=== PATIENT | female | born 1955 | race Caucasian/White ===

== ENCOUNTER 2016-10-12 05:23 | Emergency (ER) | payer OTHER ==
--- NOTE | 2016-10-12 05:25 | ED ---
General Adult HPI - General Stated complaint: CVA Symptoms Time Seen by Provider: 10/12/16 05:25 Source: RN notes reviewed, old records reviewed - History of Present Illness Initial comments: This is a 61-year-old female ER for evaluation. Patient coming in the ER for evaluation of tingling in her extremities. Patient right leg and right arm tingling. Patient states she usually has back pain that has resolved. Patient has recent history of starting hype blood pressure medication, but denies history of heart disease high cholesterol diabetes or smoking. At this point her tingling and numbness has progressed to full weakness. She believes that she still does have sensation in both her leg and arm. Symptoms are progressively worsening. Patient denies any prior history of similar symptoms. Denies any trauma no headache. - Related Data Allergies Allergy/AdvReac Type Severity Reaction Status Date / Time No Known Allergies Allergy Verified 10/12/16 05:54 Review of Systems ROS Statement: Those systems with pertinent positive or pertinent negative responses have been documented in the HPI. ROS Other: All systems not noted in ROS Statement are negative. General Exam - General Exam Comments Initial Comments: NIH 5 R arm and R leg paralysis General appearance: alert, in no apparent distress Head exam: Present: atraumatic, normocephalic, normal inspection Eye exam: Present: normal appearance, PERRL, EOMI. Absent: scleral icterus, conjunctival injection, periorbital swelling ENT exam: Present: normal exam, mucous membranes moist Neck exam: Present: normal inspection. Absent: tenderness, meningismus, lymphadenopathy Respiratory exam: Present: normal lung sounds bilaterally. Absent: respiratory distress, wheezes, rales, rhonchi, stridor Cardiovascular Exam: Present: regular rate, normal rhythm, normal heart sounds. Absent: systolic murmur, diastolic murmur, rubs, gallop, clicks GI/Abdominal exam: Present: soft, normal bowel sounds. Absent: distended, tenderness, guarding, rebound, rigid Extremities exam: Present: normal inspection, full ROM, normal capillary refill. Absent: tenderness, pedal edema, joint swelling, calf tenderness Back exam: Present: normal inspection Neurological exam: Present: alert, oriented X3, CN II-XII intact Psychiatric exam: Present: normal affect, normal mood Skin exam: Present: warm, dry, intact, normal color. Absent: rash Course Vital Signs 10/12/16 10/12/16 05:44 05:50 Temperature 97.9 F Pulse Rate 88 92 Respiratory 16 16 Rate Blood Pressure 160/80 169/72 O2 Sat by Pulse 98 96 Oximetry - Reevaluation(s) Reevaluation #1: 10/12/16 05:47 patient with no improvement in symptoms Reevaluation #2: 10/12/16 05:55 Code stroke was paged, spoke with on-call neuro interventional list, proceed with TPA Reevaluation #3: 10/12/16 05:55 Consult the patient to greater than 15 minutes regarding pros and cons of TPA, risks and benefits, patient understands and is get risk including brain bleed and , we will proceed with TPA, patient is agreeable EKG Findings - EKG Comments: EKG Findings:: EKG shows normal sinus rhythm rate of 80, ID 186, QRS I6, QTC 450 Medical Decision Making - Medical Decision Making 61 female ER for evaluation of CVA, right-sided weakness, symptoms started at 3: 30, progressively worsening, progressing from medicine taling and right upper and lower extremity to severe paralysis of right lower shown and weakness of right upper extremity. - Lab Data Result diagrams: 10/12/16 05:49 10/12/16 05:49 Lab Results 10/12/16 10/12/16 10/12/16 Range/Units 05:43 05:49 05:49 WBC 6.0 (3.8-10.6) k/uL RBC 3.93 (3.80-5.40) m/uL Hgb 12.4 (11.4-16.0) gm/dL Hct 36.4 (34.0-46.0) % MCV 92.6 (80.0-100.0) fL MCH 31.5 (25.0-35.0) pg MCHC 34.1 (31.0-37.0) g/dL RDW 12.4 (11.5-15.5) % Plt Count 195 (150-450) k/uL Neutrophils % 66 % Lymphocytes % 26 % Monocytes % 4 % Eosinophils % 2 % Basophils % 1 % Neutrophils # 4.0 (1.3-7.7) k/uL Lymphocytes # 1.6 (1.0-4.8) k/uL Monocytes # 0.2 (0-1.0) k/uL Eosinophils # 0.1 (0-0.7) k/uL Basophils # 0.0 (0-0.2) k/uL PT (9.0-12.0) sec INR (<1.1) APTT (22.0-30.0) sec Sodium 144 (137-145) mmol/L Potassium 4.0 (3.5-5.1) mmol/L Chloride 108 H (98-107) mmol/L Carbon Dioxide 25 (22-30) mmol/L Anion Gap 11 mmol/L BUN 21 H (7-17) mg/dL Creatinine 0.74 (0.52-1.04) mg/dL Est GFR (MDRD) Af Amer >60 (>60 ml/min/1.73 sqM) Est GFR (MDRD) Non-Af >60 (>60 ml/min/1.73 sqM) Glucose 102 H (74-99) mg/dL POC Glucose (mg/dL) 98 (75-99) mg/dL POC Glu Lpn Cma ID Mellisamika, Misa Calcium 8.8 (8.4-10.2) mg/dL Phosphorus 2.5 (2.5-4.5) mg/dL Magnesium 1.9 (1.6-2.3) mg/dL Total Bilirubin 0.7 (0.2-1.3) mg/dL AST 17 (14-36) U/L ALT 30 (9-52) U/L Alkaline Phosphatase 54 (38-126) U/L Total Protein 6.3 (6.3-8.2) g/dL Albumin 3.7 (3.5-5.0) g/dL 10/12/16 Range/Units 05:49 WBC (3.8-10.6) k/uL RBC (3.80-5.40) m/uL Hgb (11.4-16.0) gm/dL Hct (34.0-46.0) % MCV (80.0-100.0) fL MCH (25.0-35.0) pg MCHC (31.0-37.0) g/dL RDW (11.5-15.5) % Plt Count (150-450) k/uL Neutrophils % % Lymphocytes % % Monocytes % % Eosinophils % % Basophils % % Neutrophils # (1.3-7.7) k/uL Lymphocytes # (1.0-4.8) k/uL Monocytes # (0-1.0) k/uL Eosinophils # (0-0.7) k/uL Basophils # (0-0.2) k/uL PT 10.6 (9.0-12.0) sec INR 1.0 (<1.1) APTT 22.6 (22.0-30.0) sec Sodium (137-145) mmol/L Potassium (3.5-5.1) mmol/L Chloride (98-107) mmol/L Carbon Dioxide (22-30) mmol/L Anion Gap mmol/L BUN (7-17) mg/dL Creatinine (0.52-1.04) mg/dL Est GFR (MDRD) Af Amer (>60 ml/min/1.73 sqM) Est GFR (MDRD) Non-Af (>60 ml/min/1.73 sqM) Glucose (74-99) mg/dL POC Glucose (mg/dL) (75-99) mg/dL POC Glu Lpn Cma ID Calcium (8.4-10.2) mg/dL Phosphorus (2.5-4.5) mg/dL Magnesium (1.6-2.3) mg/dL Total Bilirubin (0.2-1.3) mg/dL AST (14-36) U/L ALT (9-52) U/L Alkaline Phosphatase (38-126) U/L Total Protein (6.3-8.2) g/dL Albumin (3.5-5.0) g/dL - Radiology Data Radiology results: report reviewed (CT brain, CTA negative for acute disease), image reviewed Critical Care Time Critical Care Time: Yes Total Critical Care Time: 65 Disposition Clinical Impression: Cerebrovascular accident Disposition: OTHER INSTITUTION NOT DEFINED Condition: Critical Referrals: Jonny Qureshi DO [Primary Care Provider] - 1-2 days - Out of Hospital Transfer - Req. Specs Out of Hospital Transfer - Requested Specifics: Other Emergency Center ([facility])
[2016-10-12] MEDS ORDERED: SODIUM CHLORIDE 0.9% 1,000 ML IV STA (05:27)
[2016-10-12] MEDS ORDERED: RX INFO: IV CONTRAST WAS GIVEN 1 EACH MISC MISCELLANE PRN (05:27)
[2016-10-12 05:46] LABS: Glucose,Whole Blood 98 mg/dL (75-99)
[2016-10-12 05:49] VITALS: RESP 16; TEMP 97.9
--- NOTE | 2016-10-12 05:53 | CT ---
EXAMINATION TYPE: CT brain wo con DATE OF EXAM: 10/12/2016 5:44 AM COMPARISON: CTA brain 10/12/2016. HISTORY: code stroke right side arm/leg CT DLP: 3025.60 mGycm Automated exposure control for dose reduction was used. FINDINGS: There is no acute intracranial hemorrhage, mass effect, or midline shift identified. The ventricles and sulci are within normal limits in size. The globes are intact. Mild mucosal thickening is sugges gregory in the maxillary and ethmoid sinuses with chronic sinusitis changes. Small mucous retention cyst is suggested in the left maxillary sinus. Multiple small bone spurs are noted at the tip of the odontoid process of the C2 vertebra in the axia l image 5 with the degenerative changes.. IMPRESSION: No acute intracranial hemorrhage, mass effect, or midline shift is seen.
[2016-10-12] MEDS ORDERED: tPA (Alteplase) PER PHARMACY 1 EACH MISC MISCELLANE PRN (05:54)
[2016-10-12] MEDS ORDERED: ALTEPLASE BOLUS 9 MG in EMPTY BAG 1 BAG IV STA (05:58)
[2016-10-12] MEDS ORDERED: ALTEPLASE 81 MG in EMPTY BAG 1 BAG IV STA (05:58)
[2016-10-12 05:59] LABS: Basophils % (A) 1 %; CH 31.3; CHCM 33.9; Eosinophils # (A) 0.1 k/uL (0-0.7); Eosinophils % (A) 2 %; HCT 36.4 % (34.0-46.0); HGB 12.4 gm/dL (11.4-16.0); Luc % (Auto) 2; Lymphocytes # (A) 1.6 k/uL (1.0-4.8); Lymphocytes % (A) 26 %; MCH 31.5 pg (25.0-35.0); MCHC 34.1 g/dL (31.0-37.0); MCV 92.6 fL (80.0-100.0); Monocytes # (A) 0.2 k/uL (0-1.0); Monocytes % (A) 4 %; Neutrophils % (A) 66 %; RBC 3.93 m/uL (3.80-5.40); RDW 12.4 % (11.5-15.5); WBC (Perox) 6.04
--- NOTE | 2016-10-12 06:08 | CT ---
EXAMINATION TYPE: CT angio head neck DATE OF EXAM: 10/12/2016 5:46 AM COMPARISON: NONE HISTORY: r/o stroke CT DLP: 3025.60 mGycm Automated exposure control for dose reduction was used. TECHNIQUE: Performed with IV Contrast, patient injected with 100 mL of Omnipaque 350. MIP images are created and reviewed. 3D reconstructed images are created on an independent workstati on and reviewed. FINDINGS: CT HEAD: Opacified kaibab of Evans arterial structures including anterior, middle and posterior cerebral robyn lena and anterior communicating and posterior communicating arteries showed no significant stenosis, aneurysm or AV malformation changes. CT NECK: The aortic arch visualized portion showed no significant atherosclerotic consolidation. The ascending aorta measures 4.0 cm in greatest AP diameter in the axial image 4 with mild aneurysmal dilatation. The evaluation of the carotid arteries and the aortic arch is somewhat limited due to motion artifact s. The origins of great vessels showed no significant atheromatous changes or narrowing. Vertebral arteries: No significant stenosis or aneurysm is noted in the visualized bilateral vertebra l arteries. Left vertebral artery is dominant and larger in size. Basilar artery appears unremarkable . Right common carotid artery and right carotid bulb and right internal and external carotid arteries s howed minor atheromatous changes in the right carotid bulb and proximal right internal carotid artery without significant stenosis.. Right external carotid artery showed no significant stenotic changes. Left common carotid artery showed no significant atheromatous changes or narrowing. Left carotid bulb showed mild to moderate atheromatous changes with possible mild ulceration as seen in the coronal image 17. There is mild atheromatous calcification and intimal wall thickening and sof t atheromatous plaques in the proximal left internal carotid artery with a less than 50% narrowing in the axial image 52. Rest of the left internal carotid artery showed no significant acute abnormality . Visualized left external carotid artery appears grossly unremarkable. Visualized soft tissues of neck showed no significant acute abnormalities. There is somewhat mass eff ect with the right carotid bulb and right internal carotid artery or the oropharynx vallecula area as seen in the axial image 48. This is most likely a benign finding. Visualized bilateral lung rubio showed no significant acute abnormality. IMPRESSION: 1. NO SIGNIFICANT STENOSIS OR ANEURYSM IS NOTED IN THE ARTERIAL STRUCTURES OF CAP[place] BAND OF EVANS IN THE HEAD. 2. MILD ATHEROMATOUS CHANGES ARE PRESENT IN THE BILATERAL CAROTID BULB AND PROXIMAL BILATERAL INTERNA L CAROTID ARTERIES WITH A LESS THAN 50% NARROWING. THERE IS POSSIBILITY OF MILD ULCERATION IN THE PRO XIMAL LEFT INTERNAL CAROTID ARTERY AND THE LEFT CAROTID BULB.
[2016-10-12 06:09] LABS: Partial Thromboplastin Time 22.6 sec (22.0-30.0); Prothrombin Time 10.6 sec (9.0-12.0)
[2016-10-12 06:10] LABS: ALT 30 U/L (9-52); AST 17 U/L (14-36); Alkaline Phosphatase 54 U/L (38-126); Anion Gap 11 mmol/L; Blood Urea Nitrogen 21 mg/dL (7-17); Calcium 8.8 mg/dL (8.4-10.2); Carbon Dioxide 25 mmol/L (22-30); Chloride 108 mmol/L (98-107); Glucose 102 mg/dL (74-99); Magnesium 1.9 mg/dL (1.6-2.3); Non-African American GFR(MDRD) >60 (>60 ml/min/1.73 sqM); Phosphorous 2.5 mg/dL (2.5-4.5); Sodium 144 mmol/L (137-145); Total Bilirubin 0.7 mg/dL (0.2-1.3); Total Protein 6.3 g/dL (6.3-8.2)
[2016-10-12 06:21] LABS: Creatine Kinase 105 U/L (30-135)
[2016-10-12 06:35] LABS: Creatine Kinase MB 0.6 ng/mL (0.0-2.4); Troponin I <0.012 ng/mL (0.000-0.034)
[2016-10-12] MEDS ORDERED: LABETALOL SYRINGE 5 MG/ML IVP STA (06:39)
[2016-10-12 06:53] LABS: Appearance,Urine Clear (Clear); Bilirubin,Urine Negative (Negative); Glucose,Urine (UA) Negative (Negative); Ketones,Urine Negative (Negative); Leukocyte Esterase,Urine Trace (Negative); Nitrite,Urine Negative (Negative); Particle Count 1372; Protein,Urine Negative (Negative); RBC,Urine 1 /hpf (0-5); Specific Gravity,Urine 1.028 (1.001-1.035); Squamous Epithelial Cell,Urine 1 /hpf (0-4); UA Billing (MACRO vs. MICRO) MICRO; Urobilinogen,Urine <2.0 mg/dL (<2.0); WBC,Urine 2 /hpf (0-5)
[2016-10-12 06:56] VITALS: BP 153/80; PULSE 84
== END 2016-10-12 06:56 | disposition other institution (70) ==
LOC: EC 05:23
DX: I63.9 Cerebral infarction, unspecified (principal); G81.91 Hemiplegia, unspecified affecting right dominant side
CPT/HCPCS: 99291; 36415; 93005; 80053; 82550; 82553; 83735; 84100; 84484; 85025; 85610; 85730; 81001; 87086; 70496; 70450; 70498; J2997; Q9967

== ENCOUNTER → 2017-01-18 | Outpatient (CLI) | payer OTHER ==
--- NOTE | 2017-01-18 23:36 | MR ---
EXAMINATION TYPE: MR lumbar spine wo con DATE OF EXAM: 01/18/2017 6:55 PM COMPARISON: NONE HISTORY: LBP radiates down left leg TECHNIQUE: T1 and T2 axial and sagittal images of the lumbar spine are submitted. FINDINGS: There is no abnormal signal seen within the visualized spinal cord or paraspinal soft tissu es. Liver appears somewhat prominent in size correlate clinically. At T12-L1 there is hypertrophy of the facet joints. No canal stenosis or disc herniation. No foramina l encroachment. At L1-2 there is no disc herniation. Hypertrophic change of the facet joints. No foraminal encroachme nt. No Canal stenosis. At L2-3 there is mild disc desiccation and hypertrophic change of the facet joints and ligamentum fla vum. No disc herniation, canal stenosis, or foraminal encroachment. At L3-4 there is mild disc desiccation and broad-based central and right paracentral disc bulging wit h hypertrophy of the ligamentum flavum and facet joints and mild canal stenosis. Mild bilateral blanche inal encroachment. Vertebral body hemangioma L4. At L4-5 there is broad-based circumferential disc bulging with hypertrophy of the ligamentum flavum a nd facet joints result in mild to moderate canal stenosis and mild to moderate bilateral foraminal en croachment. At L5-S1 there is degenerative disc disease with more moderate to severe facet arthropathy. This resu lts in moderate right-sided foraminal encroachment with possible nerve root impingement on the sagitt al view within the neural foramina. No canal stenosis or focal herniation. IMPRESSION: 1. L4-L5 demonstrates mild to moderate canal stenosis secondary to circumferential disc bulging and h ypertrophic changes with foraminal encroachment bilaterally greater on the left. 2. Mild disc bulging centrally C3-C4 greater paracentrally the right with hypertrophic changes result s in mild canal stenosis. 3. More marked facet arthropathy greater on the right at L5-S1 results in right-sided foraminal encro achment with possible nerve root impingement. Correlate for radiculopathy at this level. 4 correlate for hepatomegaly
--- NOTE | 2017-01-20 13:10 | MR ---
Left hip MRI HISTORY: Left hip pain No comparisons Multiplanar multisequence imaging through the pelvis. Small ypccr-se-ndva imaging obtained through th e left hip There is hypertrophic change at the left hip, joint space loss, chondromalacia grade 2 to grade 3 is present. Reactive marrow signal changes are present. There is a joint effusion. Fluid signal laterall y measures approximately 17 mm and may represent a ganglion cyst, difficult to exclude small loose felicia dy. Findings may be due to local labral tear. Heterogeneous signal noted within the acetabular labrum . Subchondral geode formation suspected. Alignment is maintained. Fluid signal also present at the in sertion of the gluteus tendon at the greater trochanter, some local bursitis, local soft tissue edema may be present. IMPRESSION: Osteoarthritis and additional findings above.
== END | disposition home or self-care (01) ==
LOC: RADMRIMAIN 17:33
PROVIDERS: ATTEND Family Medicine
DX: M51.36 Other intervertebral disc degeneration, lumbar region (principal); M51.26 Other intervertebral disc displacement, lumbar region; M50.21 Other cervical disc displacement, high cervical region; M48.02 Spinal stenosis, cervical region; M46.97 Unspecified inflammatory spondylopathy, lumbosacral region; M16.12 Unilateral primary osteoarthritis, left hip
CPT/HCPCS: 72148

== ENCOUNTER → 2017-07-06 | Outpatient (CLI) | payer OTHER ==
[2017-07-06 13:01] LABS: CH 31.6; CHCM 32.2; HCT 38.6 % (34.0-46.0); HDW 2.45; HGB 12.4 gm/dL (11.4-16.0); MCH 31.6 pg (25.0-35.0); MCHC 32.1 g/dL (31.0-37.0); MCV 98.6 fL (80.0-100.0); Mean Platelet Volume 6.6; RBC 3.92 m/uL (3.80-5.40); RDW 12.6 % (11.5-15.5); WBC 6.9 k/uL (3.8-10.6)
[2017-07-06 13:11] LABS: ALT 46 U/L (9-52); AST 28 U/L (14-36); Alkaline Phosphatase 79 U/L (38-126); Anion Gap 9 mmol/L; Blood Urea Nitrogen 20 mg/dL (7-17); Calcium 9.5 mg/dL (8.4-10.2); Carbon Dioxide 29 mmol/L (22-30); Chloride 103 mmol/L (98-107); Glucose 87 mg/dL (74-99); Non-African American GFR(MDRD) >60 (>60 ml/min/1.73 sqM); Sodium 141 mmol/L (137-145); Total Bilirubin 0.6 mg/dL (0.2-1.3); Total Protein 6.9 g/dL (6.3-8.2)
[2017-07-06 13:13] LABS: Partial Thromboplastin Time 22.8 sec (22.0-30.0); Prothrombin Time 10.5 sec (9.0-12.0)
== END | disposition home or self-care (01) ==
LOC: LABPAT 12:22
PROVIDERS: ATTEND Orthopaedic Surgery
DX: Z01.812 Encounter for preprocedural laboratory examination (principal); Z79.01 Long term (current) use of anticoagulants
CPT/HCPCS: 80053; 85027; 85610; 85730; 87070

== ENCOUNTER 2017-07-16 05:48 | Inpatient (IN) | payer OTHER ==
[2017-07-09 10:49] VITALS: BMI 40.7
[~2017-07-16 05:48] MED LIST: ACETAMINOPHEN TAB 500 MG TAB PO ONE; MELOXICAM 7.5 MG TAB PO ONE; TRANEXAMIC ACID 1,000 MG in SODIUM CHLORIDE 0.9% 100 ML IVPB ONE; ceFAZolin 2 GM in SODIUM CHLORIDE 0.9% 100 ML IVPB ONE
[2017-07-16] MEDS ORDERED: LIDOCAINE 1% 20 ML VIAL (10MG/ML) FOR IV START INTRADERMA ONE (06:33)
[2017-07-16] MEDS ORDERED: ONDANSETRON 4 MG/2 ML VIAL IVP ONE (06:34)
[2017-07-16] MEDS ORDERED: HYDROmorphone 0.5 MG/0.5 ML SYRINGE IVP PRN ×3 (06:37→07:31)
[2017-07-16] MEDS ORDERED: ONDANSETRON 4 MG/2 ML VIAL IVP PRN ×2 (06:37→07:31)
[2017-07-16] MEDS: LACTATED RINGERS 1,000 ML IV SCH ×2 (06:39→17:19)
[2017-07-16] MEDS ORDERED: SODIUM CHLORIDE 0.9% 100 ML BAG ONE (07:23)
[2017-07-16] MEDS ORDERED: SODIUM CHLORIDE 0.9% IRRIG 1,000 ML BTL IRRIGATION ONE (07:23)
[2017-07-16] MEDS ORDERED: ceFAZolin 3,000 MG in SODIUM CHLORIDE 0.9% IRRIGATIO 3,000 ML IRRIGATION ONE (07:23)
[2017-07-16] MEDS ORDERED: PROPOFOL 10 MG/ML 20 ML VIAL IV ONE (07:23)
[2017-07-16] MEDS ORDERED: TRANEXAMIC ACID 1,000 MG/10 ML VIAL ONE (07:23)
[2017-07-16] MEDS ORDERED: LIDOCAINE 1% INJ 10MG/ML (20 ML MDV) ONE (07:23)
[2017-07-16] MEDS ORDERED: HEPARIN SODIUM,PORCINE 10,000 UNIT/ML 1 ML VIAL ONE (07:23)
[2017-07-16] MEDS ORDERED: MIDAZOLAM 2 MG/2 ML VIAL ONE (07:23)
[2017-07-16] MEDS ORDERED: fentaNYL (PF) 50 MCG/ML 2 ML AMP ONE (07:23)
[2017-07-16] MEDS ORDERED: ePHEDrine SULFATE/0.9% NACL/PF 50 MG/5 ML SYRINGE IV ONE (07:23)
[2017-07-16] MEDS ORDERED: hydrOXYzine PAMOATE 25 MG CAP PO PRN (07:31)
[2017-07-16] MEDS ORDERED: HYDROmorphone 1 MG/ML 1 ML SYRINGE IVP PRN (07:31)
[2017-07-16] MEDS ORDERED: MAGNESIUM HYDROXIDE 2,400 MG/10 ML CUP PO PRN (07:31)
[2017-07-16] MEDS ORDERED: NALOXONE 0.4 MG/ML 1 ML VIAL IV PRN (07:31)
[2017-07-16] MEDS ORDERED: HYDROcodone/APAP 5-325MG 1 EACH TAB PO PRN (07:31)
[2017-07-16] MEDS ORDERED: DIAZEPAM 5 MG TAB PO PRN ×2 (07:31)
[2017-07-16] MEDS: ROPIVACAINE 246.25 MG, EPINEPHrine 0.5 MG, KETOROLAC 30 MG, cloNIDine HCL/PF 80 MCG, WA... MISCELLANE ONE ×10 (08:06→08:56)
--- NOTE | 2017-07-16 09:16 | P.OP ---
Date of Procedure: 07/16/17 Preoperative Diagnosis: Severe osteoarthritis left hip Postoperative Diagnosis: Severe osteoarthritis left hip Procedure(s) Performed: Left total hip arthroplasty with a direct anterior approach Implants: Cisneros and nephew Polarstem size 4 standard Cisneros [employer] Nephew R3, 3 hole acetabular shell, 50 mm [employer]ner[employer] Nephew reflection 6.5 mm cancellus screw, 20 mm 2 [employer]ner[employer]hew R3, XLPE 20 acetabular liner Cisneros [employer] Nephew Oxinium femoral head 36 m, +4 All components were press-fit. The articulation is Oxinium on polyethylene. Anesthesia: spinal Surgeon: Jonny Alvares Water Tender #1: Jo Ann Whipple Estimated Blood Loss (ml): 150 (51 mL returned with Cell Saver) Pathology: other (Femoral head) Condition: stable Disposition: PACU Indications for Procedure: After failure of conservative treatment we discussed the surgical and nonsurgical treatment options at length. Patient wishes to proceed with a total hip arthroplasty with a direct anterior approach. Complications specific to this procedure were discussed at length, including but not limited to infection, leg length discrepancy, dislocation, and nerve injury. Patient is aware of all these complications and informed consent was obtained Operative Findings: The operative findings are consistent with severe osteoarthritis of the left hip Description of Procedure: Patient was seen and evaluated in the preoperative area, consent was reviewed, and the surgical site was marked with a skin marker. Patient was then brought to the operating room and given prophylactic antibiotics intravenously. 1 g of Tranexamic acid was also given. A spinal anesthetic was administered by the anesthesia department. The patient was then placed on the [place] table with the bony prominences well-padded. The hip area was then prepped and draped in usual sterile fashion. A universal timeout was then performed, which confirmed the patient's name, surgical site, ALLERGIES, and procedure being performed. Next the incision site was located at 1 cm distal and 1 cm lateral to the anterior superior iliac spine. The skin and subcutaneous tissues were sharply incised. Incision was carefully dissected down to the fascia overlying the tensor fascia dee muscle. This fascia was then incised in line with the incision. Next, using blunt finger dissection, the tensor fascia dee muscle was dissected off its investing fascia. The muscle was then carefully retracted laterally with a cobra retractor over the lateral neck of the femur. Next, the circumflex vessels were identified and cauterized using the AquaMantis device. The anterior hip capsule was then exposed. The capsule was then opened and an inverted T fashion. Cobra retractors were then placed intracapsularly. The proximal femur was then visualized. The femoral neck was then osteotomized appropriate level above the lesser trochanter. Small amount of traction was placed with the [place] table. A small wedge of bone was then removed from the remaining femoral head. Next, using a corkscrew femoral head was easily removed from the acetabulum. On gross visual inspection, the femoral head had complete loss of articular cartilage in multiple periarticular osteophytes. Attention was then turned to the acetabulum. the acetabulum was exposed and any remaining labrum was excised. Sequential reaming of the acetabulum was performed using fluoroscopic guidance. When the appropriate size was reached, a trial was then placed. The position and fit of the trial was checked with fluoroscopy. The trial was then removed. Then, using fluoroscopic guidance, the final implant was impacted at 20 of anteversion and 40 of abduction, and fully seated in the acetabulum. 2 screws were then placed in the acetabulum. Again fluoroscopy was used to check position of the screws. Next, the liner was then impacted, with a 20 elevated liner located in the anterior superior quadrant. Component locking was confirmed. Attention was then directed to the femur. With the aid of the [place] table, the femur was externally rotated to approximately 130, extended, and abducted under the opposite leg. A side hook was then placed under the proximal femur, and the side hook elevator was used to elevate the proximal femur. Retractors were then placed. A capsular release was performed, as well as a release of the conjoined tendon, which afforded excellent visualization of the proximal femur. Next, a box osteotome was used to lateralize the proximal femur. A brush hand was then used to locate the femoral canal. Sequential broaching was then performed with appropriate size which afforded excellent fixation in the proximal femur. A trial was then placed with appropriate head and neck, and the hip was gently reduced with the aid of the [place] table. Fluoroscopy was then used to check position of the components, as well as to ensure equal leg lengths. The hip was then gently dislocated and the trials were then removed. Final implants were then impacted and the hip was again reduced. Final fluoroscopic x-rays confirmed that the components were in anatomic position, as well as equal leg lengths. The hip was also taken through range of motion, and found to be stable. The hip was then copiously irrigated with antibiotic solution with pulsatile lavage. The hip was then irrigated with Irrisept solution. The soft tissues were then injected with a ropivacaine solution, which consisted of 246.25 mg of ropivacaine, 0.5 mg of epinephrine, 30 mg of Toradol, 80 g of clonidine, and 48.45 mL of sterile water, for a total of 100 mL of fluid injected. A second dose of 1 g of Tranexamic acid was also given. the fascia was then closed with 2-0 strata fix suture. The subcutaneous tissue was closed with 3-0 Vicryl. The subcuticular tissue was closed with 3-0 strata fix suture. The skin was then closed with Dermabond tape. The patient was then transferred to the recovery room in stable condition. The assistant branch manager MERLIN Sanches was required due to the complexity of surgery, and the need for skilled middle [employer] assistant principal for positioning, draping, exposure, retraction, and closure of the wound.
[2017-07-16] MEDS ORDERED: LACTATED RINGERS 1,000 ML IV ONE (09:23)
--- NOTE | 2017-07-16 09:45 | FL ---
EXAMINATION TYPE: FL guidance operating room, XR Hip Limited LT DATE OF EXAM: 07/16/2017 CLINICAL HISTORY: Left hip arthritis TECHNIQUE: Fluoroscopy. Intraoperative limited views left hip COMPARISON: MRI left hip January 18, 2017. FINDINGS: Fluoroscopic guidance was provided during left hip replacement procedure performed by Dr. Alvares. A total of 31 seconds of fluoroscopic time was utilized during the procedure and 2 spot in traoperative images are acquired. Intraoperative images acquired show metallic hardware from total hip arthroplasty to appear satisfact ory in position on the single frontal projection. IMPRESSION: As Above.
--- NOTE | 2017-07-16 10:18 | XR ---
EXAMINATION TYPE: XR Hip Limited LT DATE OF EXAM: 07/16/2017 CLINICAL HISTORY: Left hip pain and osteoarthritis. TECHNIQUE: Single AP portable view of left hip is obtained immediately postoperatively. COMPARISON: MRI left hip January 18, 2017 FINDINGS: Metallic hardware from left hip arthroplasty is seen and appears satisfactory in alignment and position. There is evidence of recent surgery with subcutaneous gas noted surrounding metallic h ardware. IMPRESSION: Metallic hardware from total left hip arthroplasty is satisfactory in position.
[2017-07-16] MEDS: SODIUM CHLORIDE 0.9% 1,000 ML IV SCH ×2 (12:26→17:21)
[2017-07-16] MEDS: HYDROcodone/APAP 5-325MG 1 EACH TAB PO PRN ×2 (12:28→18:37)
[2017-07-16] MEDS ORDERED: ALPRAZolam 0.25 MG TAB PO PRN (13:59)
[2017-07-16] MEDS ORDERED: ALBUTEROL INHALER 60 PUFF/8 GM INHALER INHALATION PRN (13:59)
[2017-07-16] MEDS ORDERED: ALBUTEROL NEBULIZED 2.5 MG/3 ML INHALATION PRN (14:32)
--- NOTE | 2017-07-16 15:05 | P.CONS ---
History of Present Illness - Reason for Consult Hypotension - History of Present Illness Patient was admitted for elective left hip arthroplasty. Patient is hypotensive ) regarding with IV normal saline after which patient will be started on IV fluid drip. Patient's hypotension is expected for surgery. Patient uses lisinopril for hypertension and her chlorothiazide for hypertension. Patient has history of CVA but because of which her neurologist with her on aspirin and Plavix, Plavix is being held as patient is being started on Coumadin for DVT prophylaxis post hip surgery. Patient denied any fever, chills, nausea, vomiting patient is having some lightheadedness denied any dysuria. Review of Systems REVIEW OF SYSTEMS: CONSTITUTIONAL: No fever, no malaise, no fatigue. HEENT: No recent visual problems or hearing problems. Denied any sore throat. CARDIOVASCULAR: No chest pain, orthopnea, PND, no palpitations, no syncope. PULMONARY: No shortness of breath, no cough, no hemoptysis. GASTROINTESTINAL: No diarrhea, no nausea, no vomiting, no abdominal pain. Normoactive bowel sounds. NEUROLOGICAL: No headaches, no weakness, no numbness. HEMATOLOGICAL: Denies any bleeding or petechiae. GENITOURINARY: Denies any burning micturition, frequency, or urgency. MUSCULOSKELETAL/RHEUMATOLOGICAL: Denies any joint pain, swelling, or any muscle pain. ENDOCRINE: Denies any polyuria or polydipsia. The rest of the 14-point review of systems is negative. Past Medical History Past Medical History: Hypertension, Thyroid Disorder Additional Past Medical History / Comment(s): CVA-Oct slight weakness rt side History of Any Multi-Drug Resistant Organisms: None Reported Past Surgical History: Hernia Repair Additional Past Surgical History / Comment(s): hiatal hernia Past Anesthesia/Blood Transfusion Reactions: No Reported Reaction Additional Past Anesthesia/Blood Transfusion Reaction / Comm: no hx blood transfusion Past Psychological History: No Psychological Hx Reported Smoking Status: Former smoker Past Alcohol Use History: Occasional Additional Past Alcohol Use History / Comment(s): quit smoking 2011,started smoking at age 20 ,1ppd Past Drug Use History: None Reported - Past Family History Mother Family Medical History: Diabetes Mellitus, Hypertension Father Family Medical History: Hypertension Medications and Allergies Home Medications Medication Instructions Recorded Confirmed Type Aspirin 81 mg PO DAILY 07/09/17 07/16/17 History Clopidogrel [Plavix] 75 mg PO DAILY 07/09/17 07/16/17 History Naproxen Sodium [Aleve] 220 mg PO BID PRN 07/09/17 07/16/17 History ALPRAZolam [Xanax] 0.25 mg PO Q8HR PRN 07/11/17 07/16/17 History Albuterol Inhaler [Ventolin Hfa 1 - 2 puff INHALATION RT-Q6H PRN 07/11/17 History Inhaler] Atorvastatin [Lipitor] 80 mg PO HS 07/11/17 07/16/17 History Budesonide/Formoterol Fumarate 1 puff INHALATION RT-BID PRN 07/11/17 07/16/17 History [Symbicort 160-4.5 Mcg Inhaler] Hydrochlorothiazide 25 mg PO DAILY 07/11/17 07/16/17 History Levothyroxine Sodium [Synthroid] 100 mcg PO QAM 07/11/17 07/16/17 History Lisinopril [Zestril] 10 mg PO QAM 07/11/17 07/16/17 History Loratadine [Claritin] 10 mg PO DAILY 07/11/17 07/16/17 History Multivitamins, Thera [Multivitamin 1 tab PO DAILY 07/11/17 07/16/17 History (formulary)] Sertraline [Zoloft] 50 mg PO QAM 07/11/17 07/16/17 History Warfarin Sodium [Coumadin] 7.5 mg PO ONCE 07/16/17 07/16/17 History Allergies Allergy/AdvReac Type Severity Reaction Status Date / Time No Known Allergies Allergy Verified 07/16/17 10:40 Physical Exam Vitals: Vital Signs Temp Pulse Resp BP BP Pulse Ox 07/16/17 12:45 106 H 16 116/57 07/16/17 12:40 107/59 07/16/17 12:30 84 16 113/54 97 07/16/17 12:15 83 16 110/58 98 07/16/17 12:00 78 16 103/56 100 07/16/17 11:45 85 16 108/55 100 07/16/17 11:30 77 16 110/58 100 07/16/17 11:15 75 16 100/55 97 07/16/17 11:00 76 16 96/52 95 07/16/17 10:45 98 F 78 16 97/53 98 07/16/17 10:04 77 16 110/63 95 07/16/17 09:49 69 16 109/51 97 07/16/17 09:34 98.6 F 81 16 105/59 93 L 07/16/17 06:32 97.9 F 76 16 139/76 96 Intake and Output 07/16/17 07/16/17 07/16/17 06:59 14:59 22:59 Intake Total 100 1301 Output Total 150 Balance 100 1151 Intake: IV 100 1301 Output: Estimated Blood Loss 150 PHYSICAL EXAMINATION: GENERAL: The patient is alert and oriented x3, not in any acute distress. Well developed, well nourished. HEENT: Pupils are round and equally reacting to light. EOMI. No scleral icterus. No conjunctival pallor. Normocephalic, atraumatic. No pharyngeal erythema. No thyromegaly. CARDIOVASCULAR: S1 and S2 present. No murmurs, rubs, or gallops. PULMONARY: Chest is clear to auscultation, no wheezing or crackles. ABDOMEN: Soft, nontender, nondistended, normoactive bowel sounds. No palpable organomegaly. MUSCULOSKELETAL: Deferred to orthopedic surgery EXTREMITIES: No cyanosis, clubbing, or pedal edema. NEUROLOGICAL: Gross neurological examination did not reveal any focal deficits. SKIN: No rashes. Assessment and Plan Plan: #1 hypotension: Secondary to pain medications and surgery which is expected postsurgery patient the will be given a bolus of IV fluids followed by IV fluid drip. #2 hypertension holding off on hydrocodone thiazide and lisinopril due to assessment #1 #3 CVA in the past for which patient the is on aspirin and Plavix Plavix is being held Coumadin will be continued. #4 postoperative day 0 left hip arthroplasty for which patient is on Coumadin as DVT prophylaxis, pain management as per primary service. #5 hypothyroidism #6 history of asthma without any acute exacerbation. #7 hyperlipidemia for which patient is on atorvastatin which will be continued. #8 severe primary osteoarthritis.
[2017-07-16] MEDS: ceFAZolin 2 GM in SODIUM CHLORIDE 0.9% 100 ML IVPB SCH (17:21)
[2017-07-16] MEDS ORDERED: WARFARIN 5 MG TAB PO ONE (18:00)
[2017-07-16] MEDS: SYMBICORT 160-4.5 MCG INHALER INHALATION SCH (19:58)
[2017-07-16] MEDS: ATORVASTATIN 80 MG TAB PO SCH (20:12)
[2017-07-16] MEDS: SENNOSIDES-DOCUSATE SODIUM 1 EACH TAB PO SCH (20:12)
[2017-07-17] MEDS: ceFAZolin 2 GM in SODIUM CHLORIDE 0.9% 100 ML IVPB SCH (00:04)
[2017-07-17] MEDS: HYDROcodone/APAP 5-325MG 1 EACH TAB PO PRN ×4 (00:04→17:09)
[2017-07-17] MEDS: SODIUM CHLORIDE 0.9% 1,000 ML IV SCH ×2 (01:17→15:44)
[2017-07-17] MEDS: LEVOTHYROXINE 100 MCG TAB PO SCH (05:35)
[2017-07-17 07:43] LABS: INR 1.3 (<1.2)
--- NOTE | 2017-07-17 08:03 | P.DS ---
Providers Date of admission: 07/16/17 05:48 Expected date of discharge: 07/17/17 Attending physician: Jonny Alvares Consults: 07/16/17 07:31 Consult Physician Routine Consulting Provider: Angela Samaniego Consult Reason/Comments: medical mangement and anticoagulation Do you want consulting provider notified?: Yes Primary care physician: Jonny Qureshi - Discharge Diagnosis(es) (1) Primary osteoarthritis of left hip Current Visit: Yes Status: Acute (2) S/P total hip arthroplasty Current Visit: Yes Status: Acute Hospital Course: This is a 62-year-old female with known history of degenerative arthritis of the left hip. The patient presents for evaluation. After discussion and consideration patient elects to proceed with total hip arthroplasty. The patient is seen preoperatively by Dr. Alvares and cleared for surgery. Patient is admitted to [facility] on 07/16/2017 for total hip arthroplasty. The procedures performed without complication or sequelae. The patient is doing well postoperatively. Labs and vital signs are stable on day of discharge. On day of discharge patient's hip incision is healing well. There is minimal erythema. There is no drainage noted at this time. There is minimal soft tissue swelling to the hip and thigh. Patient has full foot and ankle motion without difficulty or pain. Neurovascular status to the left lower extremity is intact. Patient is discharged home in good condition. Please see med rec for accurate list of home medications. Plan - Discharge Summary New Discharge Prescriptions: New HYDROcodone/APAP 5-325MG [[place] 5-325] 1 - 2 tab PO Q4-6H PRN #90 tab PRN Reason: Pain Sennosides-Docusate Sodium [Senokot-S] 1 tab PO BID #60 tablet Warfarin Sodium [Coumadin] 2.5 mg PO DAILY #30 tablet No Action Naproxen Sodium [Aleve] 220 mg PO BID PRN PRN Reason: Pain Clopidogrel [Plavix] 75 mg PO DAILY Aspirin 81 mg PO DAILY Budesonide/Formoterol Fumarate [Symbicort 160-4.5 Mcg Inhaler] 1 puff INHALATION RT-BID PRN PRN Reason: sob Albuterol Inhaler [Ventolin Hfa Inhaler] 1 - 2 puff INHALATION RT-Q6H PRN PRN Reason: sob Loratadine [Claritin] 10 mg PO DAILY Multivitamins, Thera [Multivitamin (formulary)] 1 tab PO DAILY Sertraline [Zoloft] 50 mg PO QAM Lisinopril [Zestril] 10 mg PO QAM Atorvastatin [Lipitor] 80 mg PO HS Hydrochlorothiazide 25 mg PO DAILY Levothyroxine Sodium [Synthroid] 100 mcg PO QAM ALPRAZolam [Xanax] 0.25 mg PO Q8HR PRN PRN Reason: Anxiety Warfarin Sodium [Coumadin] 7.5 mg PO ONCE Discharge Medication List Aspirin 81 mg PO DAILY 07/09/17 [History] Clopidogrel [Plavix] 75 mg PO DAILY 07/09/17 [History] Naproxen Sodium [Aleve] 220 mg PO BID PRN 07/09/17 [History] ALPRAZolam [Xanax] 0.25 mg PO Q8HR PRN 07/11/17 [History] Albuterol Inhaler [Ventolin Hfa Inhaler] 1 - 2 puff INHALATION RT-Q6H PRN [History] Atorvastatin [Lipitor] 80 mg PO HS 07/11/17 [History] Budesonide/Formoterol Fumarate [Symbicort 160-4.5 Mcg Inhaler] 1 puff INHALATION RT-BID PRN 07/11/17 [History] Hydrochlorothiazide 25 mg PO DAILY 07/11/17 [History] Levothyroxine Sodium [Synthroid] 100 mcg PO QAM 07/11/17 [History] Lisinopril [Zestril] 10 mg PO QAM 07/11/17 [History] Loratadine [Claritin] 10 mg PO DAILY 07/11/17 [History] Multivitamins, Thera [Multivitamin (formulary)] 1 tab PO DAILY 07/11/17 [History ] Sertraline [Zoloft] 50 mg PO QAM 07/11/17 [History] Warfarin Sodium [Coumadin] 7.5 mg PO ONCE 07/16/17 [History] HYDROcodone/APAP 5-325MG [[place] 5-325] 1 - 2 tab PO Q4-6H PRN #90 tab 07/17/17 [ Rx] Sennosides-Docusate Sodium [Senokot-S] 1 tab PO BID #60 tablet 07/17/17 [Rx] Warfarin Sodium [Coumadin] 2.5 mg PO DAILY #30 tablet 07/17/17 [Rx] Follow up Appointment(s)/Referral(s): Jonny Alvares DO [Doctor of Osteopathic Medicine] - 2 Weeks Ambulatory/Diagnostic Orders: Prothrombin Time INR [LAB.AMB] Time Frame: 4 Weeks, Location: Determined By Patient Activity/Diet/Wound Care/Special Instructions: Weightbearing as tolerated with walker May shower after 2 days if no drainage from the incision Follow-up with [facility] in 2 weeks with any questions or concerns Discharge Disposition: HOME WITH HOME HEALTH SERVICES
[2017-07-17 08:05] LABS: Basophils % (A) 0 %; CH 32.9; CHCM 33.6; Eosinophils # (A) 0.1 k/uL (0-0.7); Eosinophils % (A) 1 %; HCT 30.1 % (34.0-46.0); HDW 2.55; Luc # (Auto) 0.05; Luc % (Auto) 1; Lymphocytes # (A) 1.1 k/uL (1.0-4.8); Lymphocytes % (A) 14 %; MCH 31.8 pg (25.0-35.0); MCHC 32.3 g/dL (31.0-37.0); MCV 98.4 fL (80.0-100.0); Mean Platelet Volume 7.6; Monocytes # (A) 0.4 k/uL (0-1.0); Monocytes % (A) 5 %; Neutrophils # (A) 6.2 k/uL (1.3-7.7); Neutrophils % (A) 79 %; RBC 3.05 m/uL (3.80-5.40); RDW 13.2 % (11.5-15.5); WBC 7.8 k/uL (3.8-10.6); WBC (Perox) 8.25
[2017-07-17] MEDS: SYMBICORT 160-4.5 MCG INHALER INHALATION SCH ×2 (08:11→18:50)
[2017-07-17 08:15] LABS: HGB 9.7 gm/dL (11.4-16.0)
[2017-07-17] MEDS: HYDROCHLOROTHIAZIDE 25 MG TAB PO SCH (08:54)
[2017-07-17] MEDS: LISINOPRIL 10 MG TAB PO SCH (08:54)
[2017-07-17] MEDS: SERTRALINE 50 MG TAB PO SCH (08:56)
[2017-07-17] MEDS: ASPIRIN 81 MG PO SCH (10:41)
[2017-07-17] MEDS: LORATADINE 10 MG TAB PO SCH (10:41)
[2017-07-17] MEDS: MULTIVITAMINS, THERA 1 EACH TAB PO SCH (14:52)
[2017-07-17] MEDS: LACTATED RINGERS 1,000 ML IV SCH (17:02)
[2017-07-17] MEDS ORDERED: WARFARIN 7.5 MG TAB PO ONE (18:00)
--- NOTE | 2017-07-17 19:16 | P.PN ---
Subjective Progress Note Date: 07/17/17 Progress note being dictated for Dr. Be. Interval history:Patient was admitted for elective left hip arthroplasty. Patient is hypotensive) regarding with IV normal saline after which patient will be started on IV fluid drip. Patient's hypotension is expected for surgery. Patient uses lisinopril for hypertension and her chlorothiazide for hypertension. Patient has history of CVA but because of which her neurologist with her on aspirin and Plavix, Plavix is being held as patient is being started on Coumadin for DVT prophylaxis post hip surgery. Patient denied any fever, chills, nausea, vomiting patient is having some lightheadedness denied any dysuria. 07/17/2017 yesterday presented with postop hypotension, improved with IV fluids , currently maintaining a MAP of 87. Complaining of uncontrolled pain, further recommendations as per orthopedics. Ambulating with walker. Denies chest pain , palpitations or increasing shortness of breath. Denies lightheadedness dizziness or focal deficits. Passing flatus, no bowel movement. Objective - Vital Signs Vital signs: Vital Signs Temp 98.2 F 07/17/17 07:00 Pulse 89 07/17/17 07:00 Resp 16 07/17/17 07:00 BP 122/73 07/17/17 07:00 Pulse Ox 94 L 07/17/17 07:00 Intake & Output 07/16/17 07/17/17 07/17/17 18:59 06:59 18:59 Intake Total 1301 700 Output Total 150 Balance 1151 700 Weight 104.326 kg Intake: IV 1301 Oral 700 Output: Estimated Blood Loss 150 Other: Voiding Method Toilet Toilet # Voids 1 1 - Exam GENERAL: The patient is alert and oriented x3, not in any acute distress. Well developed, well nourished. HEENT: Pupils are round and equally reacting to light. EOMI. No scleral icterus. No conjunctival pallor. Normocephalic, atraumatic. No pharyngeal erythema. No thyromegaly. CARDIOVASCULAR: S1 and S2 present. No murmurs, rubs, or gallops. PULMONARY: Chest is clear to auscultation, no wheezing or crackles. ABDOMEN: Soft, nontender, nondistended, normoactive bowel sounds. No palpable organomegaly. MUSCULOSKELETAL: Deferred to orthopedic surgery EXTREMITIES: No cyanosis, clubbing, or pedal edema. NEUROLOGICAL: Gross neurological examination did not reveal any focal deficits. SKIN: No rashes. - Labs CBC & Chem 7: 07/17/17 07:08 Labs: Abnormal Lab Results - Last 24 Hours (Table) 07/17/17 07/17/17 Range/Units 07:08 07:08 RBC 3.05 L (3.80-5.40) m/uL Hgb 9.7 L D (11.4-16.0) gm/dL Hct 30.1 L (34.0-46.0) % PT 13.0 H (9.0-12.0) sec INR 1.3 H (<1.2) Assessment and Plan Plan: #1 hypotension, postop, resolved with IV fluid hydration. #2 HX of HTN #3 CVA HX #4 postoperative left hip arthroplasty #5 hypothyroidism #6 history of asthma without any acute exacerbation. #7 hyperlipidemia for which patient is on atorvastatin which will be continued. #8 severe primary osteoarthritis. Plan: Continue on current medication regime ,monitoring and symptomatic treatment. PT/OT, Anticoagulation and pain management as per orthopedics. Vital signs stable, possibly resume home antihypertensives tomorrow. Discharge planning in progress for tomorrow. Follow with PCP in 1 week. The impression and plan of care has been dictated as directed. : I performed a history and examination of this patient, discussed the same with the dictator. I agree with the dictator's note ,documented as a scribe. Any additional findings or plans will be noted.
[2017-07-17] MEDS: SENNOSIDES-DOCUSATE SODIUM 1 EACH TAB PO SCH (20:28)
[2017-07-17] MEDS: ATORVASTATIN 80 MG TAB PO SCH (20:28)
[2017-07-18] MEDS: HYDROcodone/APAP 5-325MG 1 EACH TAB PO PRN ×2 (00:10→06:27)
[2017-07-18] MEDS: SODIUM CHLORIDE 0.9% 1,000 ML IV SCH ×3 (05:21→08:29)
[2017-07-18] MEDS: LEVOTHYROXINE 100 MCG TAB PO SCH (06:27)
[2017-07-18 07:32] LABS: INR 1.4 (<1.2)
[2017-07-18] MEDS: SYMBICORT 160-4.5 MCG INHALER INHALATION SCH (08:17)
[2017-07-18 08:23] VITALS: BP 141/90; PULSE 106; RESP 17; TEMP 98.8
[2017-07-18] MEDS: LISINOPRIL 10 MG TAB PO SCH (08:23)
[2017-07-18] MEDS: MULTIVITAMINS, THERA 1 EACH TAB PO SCH (08:23)
[2017-07-18] MEDS: SERTRALINE 50 MG TAB PO SCH (08:24)
[2017-07-18] MEDS: HYDROCHLOROTHIAZIDE 25 MG TAB PO SCH (08:24)
[2017-07-18] MEDS: LORATADINE 10 MG TAB PO SCH (08:24)
[2017-07-18] MEDS: ASPIRIN 81 MG PO SCH (08:24)
[2017-07-18] MEDS: LACTATED RINGERS 1,000 ML IV SCH (08:29)
--- NOTE | 2017-07-18 17:13 | P.PN ---
Subjective Progress Note Date: 07/18/17 Progress note being dictated for Dr. Samaniego Interval history:Patient was admitted for elective left hip arthroplasty. Patient is hypotensive) regarding with IV normal saline after which patient will be started on IV fluid drip. Patient's hypotension is expected for surgery. Patient uses lisinopril for hypertension and her chlorothiazide for hypertension. Patient has history of CVA but because of which her neurologist with her on aspirin and Plavix, Plavix is being held as patient is being started on Coumadin for DVT prophylaxis post hip surgery. Patient denied any fever, chills, nausea, vomiting patient is having some lightheadedness denied any dysuria. 07/17/2017 yesterday presented with postop hypotension, improved with IV fluids , currently maintaining a MAP of 87. Complaining of uncontrolled pain, further recommendations as per orthopedics. Ambulating with walker. Denies chest pain , palpitations or increasing shortness of breath. Denies lightheadedness dizziness or focal deficits. Passing flatus, no bowel movement. 07/18/2017 significant clinical improvement with pain better controlled today. passing flatus, no bowel movement. Good diet intake with no nausea vomiting or diarrhea. Ambulating, Denies lightheadedness dizziness or focal deficits. Denies chest pain, palpitations or increasing shortness of breath. INR 1.4. T- max 99.2. Eagerly for discharge home. Objective - Vital Signs Vital signs: Vital Signs Temp 98.8 F 07/18/17 08:22 Pulse 106 H 07/18/17 08:22 Resp 17 07/18/17 08:32 BP 141/90 07/18/17 08:22 Pulse Ox 95 07/18/17 08:22 Intake & Output 07/17/17 07/18/17 07/18/17 18:59 06:59 18:59 Weight 104.326 kg Other: Voiding Method Toilet Toilet Toilet # Voids 3 1 - Exam GENERAL: The patient is alert and oriented x3, not in any acute distress. Well developed, well nourished. HEENT: Pupils are round and equally reacting to light. EOMI. No scleral icterus. No conjunctival pallor. Normocephalic, atraumatic. No pharyngeal erythema. CARDIOVASCULAR: S1 and S2 present. No murmurs, rubs, or gallops. PULMONARY: Chest is clear to auscultation, no wheezing or crackles. ABDOMEN: Soft, nontender, nondistended, normoactive bowel sounds. No palpable organomegaly. MUSCULOSKELETAL: Deferred to orthopedic surgery EXTREMITIES: No cyanosis, clubbing, or pedal edema. NEUROLOGICAL: Gross neurological examination did not reveal any focal deficits. SKIN: No rashes. - Labs CBC & Chem 7: 07/17/17 07:08 Labs: Abnormal Lab Results - Last 24 Hours (Table) 07/18/17 Range/Units 06:43 PT 14.0 H (9.0-12.0) sec INR 1.4 H (<1.2) Assessment and Plan Plan: #1 hypotension, postop, resolved with IV fluid hydration. #2 HX of HTN #3 CVA HX #4 postoperative left hip arthroplasty #5 hypothyroidism #6 history of asthma without any acute exacerbation. #7 hyperlipidemia for which patient is on atorvastatin which will be continued. #8 severe primary osteoarthritis. Plan: Continue on current medication regime ,monitoring and symptomatic treatment. Aggressive pulmonary toileting. PT/OT, Anticoagulation and pain management as per orthopedics. Discharge planning in progress for today as per orthopedics. Follow with PCP in 1 week. The impression and plan of care has been dictated as directed. : I performed a history and examination of this patient, discussed the same with the dictator. I agree with the dictator's note ,documented as a scribe. Any additional findings or plans will be noted.
[2017-07-18] MEDS ORDERED: WARFARIN 7.5 MG TAB PO ONE (18:00)
== END 2017-07-18 14:50 | disposition home health service (06) | DRG 470 ==
LOC: 2ORMAIN 05:48 → 3SUR 09:30
PROVIDERS: ADMIT Orthopaedic Surgery; ATTEND Orthopaedic Surgery
PROC: 0SRB06A Replacement of Left Hip Joint with Oxidized Zirconium on Polyethylene Synthetic Substitute, Uncemented, Open Approach (ICD-10-PCS; principal; 2017-07-16 07:30)
DX: M16.12 Unilateral primary osteoarthritis, left hip (principal); I95.9 Hypotension, unspecified; I10 Essential (primary) hypertension; Z79.02 Long term (current) use of antithrombotics/antiplatelets; Z79.51 Long term (current) use of inhaled steroids; Z79.82 Long term (current) use of aspirin; Z79.899 Other long term (current) drug therapy; Z82.49 Family history of ischemic heart disease and other diseases of the circulatory system; Z86.73 Personal history of transient ischemic attack (TIA), and cerebral infarction without residual deficits; Z87.891 Personal history of nicotine dependence; E03.9 Hypothyroidism, unspecified
CPT/HCPCS: 73501; 85025; 85610; 86850; 86891; 86900; 86901; 88300; 94760

== ENCOUNTER → 2019-07-17 | Outpatient (CLI) | payer BC ==
--- NOTE | 2019-07-17 16:13 | XR ---
EXAMINATION TYPE: XR cervical spine comp DATE OF EXAM: 07/17/2019 TECHNIQUE: Frontal, lateral, oblique, swimmers, and open mouth view of the cervical spine are obtaine d. HISTORY: R202,M542,M545 PARESTHESIA,CERVICALGIA,LBP numbness in right hand. COMPARISON: None FINDINGS: The cervical spine is visualized in its entirety from C1 thru the top of T1 level, it is s atisfactory in alignment without evidence of acute fracture or dislocation. The pre-vertebral soft t issue appears within normal limits. The C1-C2 articulation is within normal limits on the open mouth view. Vertebral body heights are maintained. Mild disc space narrowing and anterior spurring C5-C6 level. The oblique images are within normal limits. Overlying soft tissues are unremarkable. IMPRESSION: Mild degenerative changes C5-C6 level.
--- NOTE | 2019-07-17 16:15 | XR ---
EXAMINATION TYPE: XR lumbosacral spine min 4V DATE OF EXAM: 07/17/2019 CLINICAL HISTORY: Low back pain. TECHNIQUE: Frontal, lateral, and oblique images of the lumbar spine are obtained. COMPARISON: None FINDINGS: There are 5 lumbar type vertebral bodies identified. There is slight grade 1 anterolisthes is L4 on L5. Vertebral body heights maintained. Mild anterior spurring L2-L3 and L3-L4 levels. Mild a nterior spurring and disc space narrowing L4-5 level. Mild disc space narrowing L5-S1 level. Oblique images are thought within normal limits. Some facet arthropathy lower lumbar spine is present. Some v ascular calcification overlying abdominal aorta is noted. IMPRESSION: As above.
== END | disposition home or self-care (01) ==
LOC: RADXRYALE 15:28
PROVIDERS: ATTEND Family Medicine
DX: M99.71 Connective tissue and disc stenosis of intervertebral foramina of cervical region (principal); M99.73 Connective tissue and disc stenosis of intervertebral foramina of lumbar region; M43.16 Spondylolisthesis, lumbar region; M46.96 Unspecified inflammatory spondylopathy, lumbar region; R20.2 Paresthesia of skin
CPT/HCPCS: 72050; 72110

== ENCOUNTER → 2019-08-03 | Outpatient (CLI) | payer BC ==
--- NOTE | 2019-08-04 00:03 | MR ---
EXAMINATION TYPE: MR cspine/lspine wo con DATE OF EXAM: 08/03/2019 COMPARISON: Lumbar spine 01/18/2017 HISTORY: Neck/lower back pain, numbness/weakness lt side TECHNIQUE: Multiplanar, multisequence imaging of the lumbar spine and cervical is performed without I V contrast. FINDINGS: Cervical spine There is mild straightening of the cervical spine. Disc spaces are fairly normal for age. There are s mall posterior disc herniation at C4-5 and mild endplate spur formation. There is no significant narr owing of the spinal canal. Spinal canal measures 9 mm at C4-5. Cervical spinal cord has normal signal pattern. There is no edema. Brainstem is intact. The posterior elements are intact. There is no evid ence of a fracture. IMPRESSION: Mild posterior disc herniation at C4-5. No spinal stenosis. No fracture. Lumbar spine Vertebra have normal alignment. There is posterior small disc herniation at L5-S1. There is 10 mm rou nded mixed signal lesion in the spinal canal on the right side at L4-5 that appears to relate to a sy novial cyst from the right side facet joint of L4-5. There is encroachment on the spinal canal. There is mild spinal stenosis at L4-5 due to facet arthropathy and ligamentum flavum thickening. There is mild narrowing of the neural foramina due to mild disc space narrowing and facet arthropathy at L4-5 and L5-S1. There is no compression fracture. There is no lumbar paraspinal mass. The sacroiliac joint s appear intact. IMPRESSION: There is a moderate size synovial cyst with calcification in the spinal canal on the right side at L4 -5 that is a change compared to last exam. There is L4-5 bony spinal stenosis that has progressed com pared to old exam. Neural foraminal narrowing due to facet arthropathy and disc space mild narrowing.
== END | disposition home or self-care (01) ==
LOC: RADMRIMAIN 16:53
PROVIDERS: ATTEND Family Medicine
DX: M50.221 Other cervical disc displacement at C4-C5 level (principal); M99.73 Connective tissue and disc stenosis of intervertebral foramina of lumbar region; M48.061 Spinal stenosis, lumbar region without neurogenic claudication; M46.96 Unspecified inflammatory spondylopathy, lumbar region; M71.38 Other bursal cyst, other site
CPT/HCPCS: 72141; 72148

== ENCOUNTER 2021-05-24 10:05 | Observation (INO) | payer BC, MEDICARE ==
--- NOTE | 2021-05-24 10:53 | ED ---
Neuro HPI - General Chief Complaint: Neuro Symptoms/Deficit Stated Complaint: neuro issues Time Seen by Provider: 05/24/21 10:15 Source: patient Mode of arrival: ambulatory Limitations: no limitations - History of Present Illness Is the patient presenting with stroke symptoms?: Yes Initial Comments: The patient is a 66-year-old female who presents to the emergency department as a transfer from [facility]. She has a history of CVA in 2017 where she received TPA for right-sided hemiparesis. She states that her deficits have improved approximately 80%. This morning she awoke and felt as if she could not stand up straight. She was falling to the right. She also had notable left- sided facial droop. Symptom onset was 5 AM. She went into [facility] where workup was performed and essentially negative. They did transport to our facility for neurology consultation. Patient arrives and NIH is 0 at this time. She reports that all her symptoms have resolved. She denies any headaches or visual changes. No neck pain or stiffness. No fevers or chills. No recent head trauma. No new weakness in her extremities. No other alleviating, precipitating or modifying factors - Related Data Home Medications: Home Medications Medication Instructions Recorded Confirmed Atorvastatin [Lipitor] 80 mg PO HS 07/11/17 05/24/21 Levothyroxine Sodium [Synthroid] 100 mcg PO QAM 07/11/17 05/24/21 Lisinopril [Zestril] 10 mg PO QAM 07/11/17 05/24/21 Loratadine [Claritin] 10 mg PO DAILY 07/11/17 05/24/21 hydroCHLOROthiazide 25 mg PO DAILY 07/11/17 05/24/21 Clopidogrel Bisulfate [Plavix] 75 mg PO DAILY 05/24/21 05/24/21 Multivitamins, Thera [Multivitamin 1 tab PO DAILY 05/24/21 05/24/21 (formulary)] Previous Rx's Medication Instructions Recorded Aspirin 81 mg PO DAILY #0 08/02/17 Allergies/Adverse Reactions: Allergies Allergy/AdvReac Type Severity Reaction Status Date / Time No Known Allergies Allergy Verified 05/24/21 12:24 Review of Systems ROS Statement: Those systems with pertinent positive or pertinent negative responses have been documented in the HPI. ROS Other: All systems not noted in ROS Statement are negative. General Exam Limitations: no limitations General appearance: alert, in no apparent distress Head exam: Present: atraumatic, normocephalic, normal inspection Eye exam: Present: normal appearance, PERRL, EOMI. Absent: scleral icterus, conjunctival injection, periorbital swelling ENT exam: Present: normal exam, mucous membranes moist Neck exam: Present: normal inspection. Absent: tenderness, meningismus, lymphadenopathy Respiratory exam: Present: normal lung sounds bilaterally. Absent: respiratory distress, wheezes, rales, rhonchi, stridor Cardiovascular Exam: Present: regular rate, normal rhythm, normal heart sounds. Absent: systolic murmur, diastolic murmur, rubs, gallop, clicks GI/Abdominal exam: Present: soft, normal bowel sounds. Absent: distended, tenderness, guarding, rebound, rigid Extremities exam: Present: normal inspection, full ROM, normal capillary refill. Absent: tenderness, pedal edema, joint swelling, calf tenderness Back exam: Present: normal inspection Neurological exam: Present: alert, oriented X3, CN II-XII intact Psychiatric exam: Present: normal affect, normal mood Skin exam: Present: warm, dry, intact, normal color. Absent: rash Stroke MDM - Lab Data Result diagrams: 05/25/21 05:03 05/25/21 05:03 Lab Results 05/24/21 05/24/21 05/24/21 Range/Units 10:40 10:40 10:40 WBC 6.1 (3.8-10.6) k/uL RBC 4.13 (3.80-5.40) m/uL Hgb 13.2 (11.4-16.0) gm/dL Hct 39.5 (34.0-46.0) % MCV 95.6 (80.0-100.0) fL MCH 32.0 (25.0-35.0) pg MCHC 33.5 (31.0-37.0) g/dL RDW 13.6 (11.5-15.5) % Plt Count 237 (150-450) k/uL MPV 7.6 Neutrophils % 54 % Lymphocytes % 34 % Monocytes % 7 % Eosinophils % 1 % Basophils % 1 % Neutrophils # 3.3 (1.3-7.7) k/uL Lymphocytes # 2.1 (1.0-4.8) k/uL Monocytes # 0.4 (0-1.0) k/uL Eosinophils # 0.1 (0-0.7) k/uL Basophils # 0.1 (0-0.2) k/uL PT 10.0 (9.0-12.0) sec INR 0.9 (<1.2) APTT 19.8 L (22.0-30.0) sec Sodium 140 (137-145) mmol/L Potassium 4.3 (3.5-5.1) mmol/L Chloride 106 (98-107) mmol/L Carbon Dioxide 25 (22-30) mmol/L Anion Gap 9 mmol/L BUN 21 H (7-17) mg/dL Creatinine 0.83 (0.52-1.04) mg/dL Est GFR (CKD-EPI)AfAm 86 (>60 ml/min/1.73 sqM) Est GFR (CKD-EPI)NonAf 75 (>60 ml/min/1.73 sqM) Glucose 98 (74-99) mg/dL Calcium 9.3 (8.4-10.2) mg/dL Total Bilirubin 0.3 (0.2-1.3) mg/dL AST 26 (14-36) U/L ALT 22 (4-34) U/L Alkaline Phosphatase 78 (38-126) U/L Troponin I (0.000-0.034) ng/mL Total Protein 6.6 (6.3-8.2) g/dL Albumin 4.4 (3.5-5.0) g/dL 05/24/21 Range/Units 10:40 WBC (3.8-10.6) k/uL RBC (3.80-5.40) m/uL Hgb (11.4-16.0) gm/dL Hct (34.0-46.0) % MCV (80.0-100.0) fL MCH (25.0-35.0) pg MCHC (31.0-37.0) g/dL RDW (11.5-15.5) % Plt Count (150-450) k/uL MPV Neutrophils % % Lymphocytes % % Monocytes % % Eosinophils % % Basophils % % Neutrophils # (1.3-7.7) k/uL Lymphocytes # (1.0-4.8) k/uL Monocytes # (0-1.0) k/uL Eosinophils # (0-0.7) k/uL Basophils # (0-0.2) k/uL PT (9.0-12.0) sec INR (<1.2) APTT (22.0-30.0) sec Sodium (137-145) mmol/L Potassium (3.5-5.1) mmol/L Chloride (98-107) mmol/L Carbon Dioxide (22-30) mmol/L Anion Gap mmol/L BUN (7-17) mg/dL Creatinine (0.52-1.04) mg/dL Est GFR (CKD-EPI)AfAm (>60 ml/min/1.73 sqM) Est GFR (CKD-EPI)NonAf (>60 ml/min/1.73 sqM) Glucose (74-99) mg/dL Calcium (8.4-10.2) mg/dL Total Bilirubin (0.2-1.3) mg/dL AST (14-36) U/L ALT (4-34) U/L Alkaline Phosphatase (38-126) U/L Troponin I <0.012 (0.000-0.034) ng/mL Total Protein (6.3-8.2) g/dL Albumin (3.5-5.0) g/dL - Medical Decision Making Upon arrival patient is placed into room 12. I did review her transfer packet. Laboratory studies were obtained. I did admit the patient to the hospital and spoke with Dr. norris. I then spoke with Dr. Jackson who presents to the ER to evaluate the patient. She is currently awaiting a bed on the floor 05/24/21 10:53 EKG demonstrates normal sinus rhythm with a ventricular rate of 67. DC interval 194. QRS 94. QTC 420. No acute ST segment elevations or depressions paola rning for ischemic changes. Past Medical History Past Medical History: Hyperlipidemia, Hypertension, Thyroid Disorder Additional Past Medical History / Comment(s): CVA-Oct slight weakness rt side, infection left hip History of Any Multi-Drug Resistant Organisms: None Reported Past Surgical History: Hernia Repair, Joint Replacement Additional Past Surgical History / Comment(s): hiatal hernia, left hip replaced 07-16-17 Past Anesthesia/Blood Transfusion Reactions: No Reported Reaction Additional Past Anesthesia/Blood Transfusion Reaction / Comment(s): no hx blood transfusion Past Psychological History: No Psychological Hx Reported Smoking Status: Former smoker Past Alcohol Use History: Occasional Past Drug Use History: None Reported - Past Family History Mother Family Medical History: Diabetes Mellitus, Hypertension Father Family Medical History: Hypertension Course Vital Signs 05/24/21 05/24/21 05/24/21 10:18 11:15 13:15 Temperature 98 F 98.2 F Pulse Rate 81 87 77 Pulse Rate [ Sitting] Pulse Rate [ Standing] Pulse Rate [ Supine] Respiratory 18 18 16 Rate Blood Pressure 144/90 155/97 140/90 Blood Pressure [Sitting] Blood Pressure [Standing] Blood Pressure [Supine] O2 Sat by Pulse 97 97 99 Oximetry 05/24/21 05/24/21 14:50 16:00 Temperature 98.1 F Pulse Rate 77 Pulse Rate [ 82 Sitting] Pulse Rate [ 91 Standing] Pulse Rate [ 75 Supine] Respiratory 16 18 Rate Blood Pressure 133/68 Blood Pressure 126/86 [Sitting] Blood Pressure 128/88 [Standing] Blood Pressure 137/77 [Supine] O2 Sat by Pulse 97 99 Oximetry - Reevaluation(s) Reevaluation #1: 05/24/21 12:03 Dr. Jackson aware of patient Disposition Clinical Impression: Transient cerebral ischemia Disposition: ADMITTED IP TO [facility] Condition: Stable Is patient prescribed a controlled substance at d/c from ED?: No Decision to Admit Reason: Admit from EC Decision Date: 05/24/21 Decision Time: 11:51
[2021-05-24 10:54] LABS: Basophils # (A) 0.1 k/uL (0-0.2); Basophils % (A) 1 %; Eosinophils # (A) 0.1 k/uL (0-0.7); Eosinophils % (A) 1 %; HCT 39.5 % (34.0-46.0); HGB 13.2 gm/dL (11.4-16.0); Lymphocytes # (A) 2.1 k/uL (1.0-4.8); Lymphocytes % (A) 34 %; MCHC 33.5 g/dL (31.0-37.0); MCV 95.6 fL (80.0-100.0); Mean Platelet Volume 7.6; Monocytes # (A) 0.4 k/uL (0-1.0); Monocytes % (A) 7 %; Neutrophils # (A) 3.3 k/uL (1.3-7.7); Neutrophils % (A) 54 %; Platelet Count 237 k/uL (150-450); RBC 4.13 m/uL (3.80-5.40); RDW 13.6 % (11.5-15.5); WBC 6.1 k/uL (3.8-10.6)
[2021-05-24 11:16] LABS: INR 0.9 (<1.2)
[2021-05-24 11:17] LABS: Albumin 4.4 g/dL (3.5-5.0); Calcium 9.3 mg/dL (8.4-10.2); Potassium 4.3 mmol/L (3.5-5.1); Total Bilirubin 0.3 mg/dL (0.2-1.3); Total Protein 6.6 g/dL (6.3-8.2)
[2021-05-24 11:22] LABS: Partial Thromboplastin Time 19.8 sec (22.0-30.0)
[2021-05-24] MEDS ORDERED: NALOXONE 0.4 MG/ML 1 ML VIAL IV PRN (11:51)
[2021-05-24] MEDS ORDERED: TICAGRELOR 90 MG TAB PO STA (14:17)
--- NOTE | 2021-05-24 14:29 | P.CNNES ---
History of Present Illness Consult date: 05/24/21 Requesting physician: Mirtha Das Reason for Consult: tia with hx of stroke History of Present Illness: This is a 66-year-old woman with medical history of stroke (2016) s/p IV tpa with residual mild right-sided weakness, hypertension, hyperlipidemia, hypothyroidism who was transferred from outside facility ([facility]) to our ED team on 05/24/2021 for escalation of care for stroke symptoms. Patient stated that the last few days she's been feeling dizzy when she is bending down denied any other neurological complaints. Today and when she got up about 5:00 in the morning she noticed that the when she stood up she felt that she was dizzy and was relieved when she was resting. She was then she also felt that she was leading towards her right side. She denies any other neurological complaints associate with that. She denies of any ringing in the ears any nausea, any vomiting, any focal weakness that is new, any numbness, any visual disturbance, any difficulty getting her words out, any difficulty swallowing. She denied of any fever recently. She stated that in the last couple days her blood pressure has been running high systolic between 140s 160s even though she is compliant with a blood pressure medication. Currently the patient stated that she's feeling drastically better. Patient stated that while she was at the outside facility they did have MRI Brain to be done recently and transferred her as result. Some of the patient home medication consist of Plavix 75 mg daily, ASA 81mg daily, Lipitor 80 mg daily, hydrochlorothiazide 25 mg daily, lithium felt 10 mg every morning, Synthroid 100mcg daily,. Outside facility the patient had the CT of the head and it's reported as no acute intracranial bleed, mass effect or extracerebral collection. Preservation of the bony landmark.Occupying processes. Of note patient stated that she had the stroke with significant right residual weakness over the right side in 2017 she received TPA and then the she was transferred to [facility] for discussion of care at. She stated that she had significant improvement but the continues to have some mild weakness over the right side that. She denies of walking with a walker or cane or needing any assistance walking. She said that she has a small limp as a result. Some of the workup in our hospital consists of: Initial vital signs as a blood pressure of 144/90, heart rate of 81, respiratory of 18, temperature of 98.0 Fahrenheit and pulse ox of 97% at room air. CBC with differential is unremarkable. Chemistry panel also seems unremarkable. Calcium is 9.3, AST 26 ALT of 22 which is considered within normal limits Review of Systems Review of system: The 12 point system was reviewed and apparent positive and negative per HPI. Past Medical History Past Medical History: Hyperlipidemia, Hypertension, Thyroid Disorder Additional Past Medical History / Comment(s): CVA-Oct slight weakness rt side, infection left hip History of Any Multi-Drug Resistant Organisms: None Reported Past Surgical History: Hernia Repair, Joint Replacement Additional Past Surgical History / Comment(s): hiatal hernia, left hip replaced 07-16-17 Past Anesthesia/Blood Transfusion Reactions: No Reported Reaction Additional Past Anesthesia/Blood Transfusion Reaction / Comment(s): no hx blood transfusion Past Psychological History: No Psychological Hx Reported Smoking Status: Former smoker Past Alcohol Use History: Occasional Past Drug Use History: None Reported - Past Family History Mother Family Medical History: Diabetes Mellitus, Hypertension Father Family Medical History: Hypertension Medications and Allergies Home Medications Medication Instructions Recorded Confirmed Type Atorvastatin [Lipitor] 80 mg PO HS 07/11/17 05/24/21 History Levothyroxine Sodium [Synthroid] 100 mcg PO QAM 07/11/17 05/24/21 History Lisinopril [Zestril] 10 mg PO QAM 07/11/17 05/24/21 History Loratadine [Claritin] 10 mg PO DAILY 07/11/17 05/24/21 History hydroCHLOROthiazide 25 mg PO DAILY 07/11/17 05/24/21 History Aspirin 81 mg PO DAILY #0 08/02/17 05/24/21 Rx Clopidogrel Bisulfate [Plavix] 75 mg PO DAILY 05/24/21 05/24/21 History Multivitamins, Thera [Multivitamin 1 tab PO DAILY 05/24/21 05/24/21 History (formulary)] Allergies Allergy/AdvReac Type Severity Reaction Status Date / Time No Known Allergies Allergy Verified 05/24/21 12:24 Physical Examination - Vital Signs Vital Signs: Vital Signs Temp Pulse Resp BP Pulse Ox 05/24/21 11:15 87 18 155/97 97 05/24/21 10:18 98 F 81 18 144/90 97 Intake and Output 05/23/21 05/24/21 05/24/21 22:59 06:59 14:59 Other: Weight 108.862 kg GENERAL: The patient is lying in bed and is not in acute distress. CHEST: The heart rate is regular rate rhythm. No murmurs to auscultation. No carotid bruit bilaterally. LUNG: Clear to auscultation bilaterally no wheezing noted throughout. Not labored breathing. ABDOMEN/GI: Bowel sounds present in all 4 quadrants. No tenderness to palpation throughout. NEUROLOGICAL: Higher mental function: The patient is awake, alert, oriented to self, place and time. Patient is following commands. No aphasia and no neglect. Cranial nerves: The pupils are round, equal and reactive to light and accommodation. Visual rubio are full to confrontation throughout. Extraocular movement is intact no nystagmus is noted. Facial sensation is normal to touch throughout. The facial strength is normal throughout. Hearing is normal bilaterally to hand rub. Tongue is midline and moved [id number] without any difficulty. No dysarthria is noted. Shoulder shrug is normal bilaterally. Motor: Gait: Walk with slight limp over the right (chronic from her old stroke). The strength is right arm flexion is 4+ and right hand friend of the court is 4+. Right knee extension is 4+ to 5- (per patient deficits over the right are old). Otherwise 5 over 5 throughout. Normal tone and bulk. Cerebellum: Normal finger to nose bilaterally. Sensation: Sensation is normal to touch throughout. Reflexes (right/left): 3+ over the right and 2+ throughout left. Plantars is upgoing over the right and downgoing over the left. Results Basic coagulation study: PT 10.0, INR 0.9, PTT 19.8 (slightly low). - Laboratory Findings CBC and BMP: 05/24/21 10:40 05/24/21 10:40 Abnormal Lab Findings: Abnormal Labs 05/24/21 05/24/21 10:40 10:40 APTT 19.8 L BUN 21 H Assessment and Plan Assessment: Transient Episode of leaning toward right side and vertigo seems likely TIA History of stroke (2017) s/p IV tpa with mild residual right-sided weakness Slight elevated hypertension with history of hypertension. History of hyperlipidemia History of hypothyroidism Plan: * The patient is restarted on her home dose of aspirin 81 mg daily, Plavix and a 5 mg daily. I stopped the Plavix 75mg and I started the patient on Brilinta 90mg 1 tab bid with loading of 180mg once. She is to continue dual antiplateletes (ASA and Brilinta. Patient stated that she will go back to her home dose of Plavix if not covered by insurance and I am ok with that). She is continued on her home dose of Lipitor 80 mg daily at bedtime for secondary stroke prophylaxis. * I ordered MRI of the brain without. Also ordered carotid duplex, 2-D echo. * Ordered hemoglobin A1c, TSH level. * Ordered Orthostatic vitals. * Consulted PT, OT. * Q4 hours neuro checks. * Place on cardiac monitoring. * We'll defer the rest of the medical management to primary team. * Upon discharge, the patient needs to follow-up with a neurologist as outpatient within 1-2 weeks. For DVT prophylaxis: Placed on subq heparin 5000U every 12 hrs. The plan is discussed with the patient nurse. Thank you for the consultation. Russell Jackson MD Neuro-Hospitalist Time with Patient: Greater than 30
--- NOTE | 2021-05-24 14:43 | MR ---
EXAMINATION TYPE: MR brain wo con DATE OF EXAM: 05/24/2021 COMPARISON: NONE HISTORY: Ataxia, facial droop. Stroke. TECHNIQUE: Multiplanar, multisequence imaging of the brain and brainstem is performed without IV cont rast. FINDINGS: Diffusion weighted images demonstrate no evidence of a recent infarct or other diffusion abnormality. There is mild ventricular and sulcal prominence. Nonspecific 10 mm T2 hyperintense lesion axial image 21 left coronal radiata has some inferior extension. Additional smaller left frontal T2 hyperintense lesion axial image 17 noted Midline structures demonstrate normal morphology. The craniocervical junction appears within normal limits. Normal vascular flow voids are present. Tiny mucous retention cyst or polyp in the anterior l eft maxillary sinus. Remainder paranasal sinuses are clear. Globes are intact bilaterally. IMPRESSION: No MRI evidence for recent infarct. Mild diffuse age-related cerebral atrophy. Mild nonsp ecific white matter changes.
[2021-05-24] MEDS: HEPARIN SODIUM,PORCINE/PF 5,000 UNIT/0.5 ML SYRINGE SQ SCH ×2 (14:52→22:11)
--- NOTE | 2021-05-24 15:36 | US ---
EXAMINATION TYPE: US carotid duplex BILAT DATE OF EXAM: 05/24/2021 COMPARISON: NONE CLINICAL HISTORY: stroke. Ataxia and facial droop. EXAM MEASUREMENTS: RIGHT: Peak Systolic Velocity (PSV) cm/sec ----- Right CCA: 63.6 ----- Right ICA: 80.1 ----- Right ECA: 73.5 ICA/CCA ratio: 1.3 RIGHT: End Diastole cm/sec ----- Right CCA: 20.8 ----- Right ICA: 29.6 ----- Right ECA: 9.8 LEFT: Peak Systolic Velocity (PSV) cm/sec ----- Left CCA: 72.6 ----- Left ICA: 89.8 ----- Left ECA: 59.8 ICA/CCA ratio: 1.2 LEFT: End Diastole cm/sec ----- Left CCA: 23.7 ----- Left ICA: 42.5 ----- Left ECA: 11.4 VERTEBRALS (direction of flow): Right Vertebral: Antegrade Left Vertebral: Antegrade Rhythm: Normal No significant stenosis seen. No elevated velocities.Mild to moderate peripheral hyperechoic plaque o n the left side . IMPRESSION: No hemodynamically significant stenosis in either internal carotid artery NASCET criteria was used in interpretation of this exam? Criteria for Assigning % of Stenosis / Diameter reduction (Estimation based on the indirect measurements of the internal carotid artery velocities (ICA PSV). 1. Normal (no stenosis)=ICA PSV < 125 cm/s: ratio < 2.0: ICA EDV<40 cm/s. 2. Less than 50% stenosis=ICA PSV < 125 cm/s: ratio < 2.0: ICA EDV<40 cm/s. 3. 50 to 69% stenosis=ICA PSV of 125 to 230 cm/s: ration 2.0 ? 4.0: ICA EDV 40-100 cm/s. 4. Greater than 70% stenosis to near occlusion= ICA PSV > 230 cm/s: ratio > 4.0: ICA EDV > 100 cm/s. 5. Near occlusion= ICA PSV velocities may be low or undetectable: variable ratio and ICA EDV. 6. Total occlusion=unable to detect flow.
--- NOTE | 2021-05-24 20:50 | HP ---
HISTORY AND PHYSICAL DATE OF SERVICE: 05/24/2021 CHIEF COMPLAINTS: Left-sided facial droop and difficulty in standing and falling to the right. HISTORY OF PRESENT ILLNESS: This 66-year-old woman with a past medical history of multiple medical problems, acute stroke, CVA in 2017, status post tPA, hypertension, hyperlipidemia, hypothyroidism, history of DJD being followed Dr. Qureshi in the outpatient setting has had difficulty this morning at 5 o'clock when the patient woke up. Patient had noted left- sided facial droop and difficulty in standing up and was falling to the right side. The patient went to [facility] and was evaluated. Because of lack of MRI, the patient was transferred to [facility] and admitted to the hospital for further evaluation and treatment. There is no history of fever, rigors or chills. No history of headache, loss of consciousness or seizures at this time. The patient has some residual left-sided weakness, which is slightly increased according to her. PAST MEDICAL HISTORY: Hypertension, hyperlipidemia, hypothyroidism, history of CVA. MEDICATIONS: Prior to admission, home medications include: Multivitamins, Plavix, Lipitor, hydrochlorothiazide, Claritin, Zestril, Synthroid, aspirin. ALLERGIES: None. FAMILY HISTORY: History of diabetes and hypertension. SOCIAL HISTORY: Previous history of smoking. REVIEW OF SYSTEMS: ENT: No diminished vision. No diminished hearing. CARDIO system: No angina or palpitations. RESPIRATORY: As mentioned earlier. GI: As mentioned earlier. : No dysuria. ALLERGIES/IMMUNOLOGY: No asthma or hayfever. MUSCULOSKELETAL as mentioned earlier. HEMATOLOGY/ONCOLOGY: No history of anemia. ENDOCRINE as mentioned earlier. CONSTITUTIONAL: As mentioned earlier. DERMATOLOGY: Negative. RHEUMATOLOGY: Negative. PSYCHIATRIC: As mentioned earlier. PHYSICAL EXAMINATION: Patient is alert and oriented times three. Pulse is 82. Blood pressure 126/86. No orthostatic changes. Respiration rate 16. Temperature 98.2, pulse ox 97% on room air. HEENT: Conjunctivae normal. NECK: No JVD. CARDIOVASCULAR: S1, S2 muffled. RESPIRATORY: Breath sounds diminished in the bases. No rhonchi. No crackles. ABDOMEN: Soft, nontender. No mass palpable. LEGS: No edema. No swelling. NERVOUS SYSTEM: Higher functions as mentioned earlier. Minimal facial paralysis on the right side with minimal weakness on the right. Otherwise, no focal motor or sensory deficits. LYMPHATICS: No lymph nodes palpable in the neck, axillae or groin. SKIN: No ulcer, no rash and no bleeding. JOINTS: No active deforming arthropathy. LABORATORY DATA: CBC within normal limits. of 19.8. BUN is 21. ASSESSMENT: 1. Left-sided droop and as well as weakness of the right side possible acute transient ischemic attack. 2. Previous acute stroke on the right side, status post tPA in 2017. 3. Hypertension. 4. Hyperlipidemia. 5. Hypothyroidism. 6. History of hernia repair. 7. History of degenerative joint disease. 8. Obesity body mass of 42.5. 9. FULL CODE. 10.Remote history of nicotine dependence. RECOMMENDATIONS AND DISCUSSION: This 66-year-old woman who presented with multiple complex medical issues, we will monitor the patient closely. Antiplatelet agents. MRI did not show any acute abnormality. Carotid Doppler is negative for any DVT. I would recommend PT/OT evaluation. Neurology consultation. DVT prophylaxis. Antiplatelet agents. Resume the home medications. Prognosis guarded because of multiple complex medical issues. Further recommendations to follow. A copy of dictation being forwarded to Dr. Qureshi who is the primary physician. MMODL / IJN: [id number] / RENA
[2021-05-24] MEDS ORDERED: ATORVASTATIN 80 MG TAB PO SCH (21:00)
[2021-05-24 21:44] LABS: Hemoglobin A1C 5.3 % (4.0-6.0)
[2021-05-24] MEDS: TICAGRELOR 90 MG TAB PO SCH (22:11)
[2021-05-24 22:16] LABS: Chol/HDL Ratio 2.33; LDL Cholesterol,Calculated 52.8 mg/dL (0.0-131.0); VLDL Calculation 15.2 mg/dL (5.00-40.00)
[2021-05-24 22:50] VITALS: RESP 17
[2021-05-25 02:28] VITALS: PULSE 68
[2021-05-25] MEDS ORDERED: LEVOTHYROXINE 100 MCG TAB PO SCH (06:30)
[2021-05-25 08:48] VITALS: BP 130/80; TEMP 97.6
[2021-05-25 08:57] LABS: Basophils # (A) 0.03 X 10*3/uL (0.00-0.10); Basophils % (A) 0.6 %; Eosinophils # (A) 0.11 X 10*3/uL (0.04-0.35); Eosinophils % (A) 2.4 %; HCT 38.3 % (37.2-46.3); HGB 12.4 g/dL (12.0-15.0); Lymphocytes # (A) 1.36 X 10*3/uL (0.90-5.00); Lymphocytes % (A) 29.3 %; MCH 31.6 pg (27.0-32.0); MCHC 32.4 g/dL (32.0-37.0); MCV 97.5 fL (80.0-97.0); Mean Platelet Volume 9.9 fL (9.5-12.2); Monocytes # (A) 0.43 X 10*3/uL (0.20-1.00); Monocytes % (A) 9.3 %; Neutrophils # (A) 2.69 X 10*3/uL (1.80-7.70); Platelet Count 186 X 10*3/uL (140-440); RBC 3.93 X 10*6/uL (4.10-5.20); RDW 12.1 % (11.5-14.5); WBC 4.64 X 10*3/uL (4.50-10.00)
[2021-05-25 09:00] LABS: African American GFR (CKD) 77.8 (60.0-200.0); Anion Gap 8.1 mmol/L (4.00-12.00); BUN/Creat Ratio 22.22 Ratio (12.00-20.00); Calcium 9.3 mg/dL (8.7-10.3); Carbon Dioxide 29.9 mmol/L (21.6-31.8); Non-African American GFR(CKD) 67.1 (60.0-200.0)
[2021-05-25] MEDS ORDERED: hydroCHLOROthiazide 25 MG TAB PO SCH (09:00)
[2021-05-25] MEDS ORDERED: ASPIRIN 81 MG PO SCH (09:00)
[2021-05-25] MEDS ORDERED: LORATADINE 10 MG TAB PO SCH (09:00)
[2021-05-25] MEDS ORDERED: lisinopriL 10 MG TAB PO SCH (09:00)
[2021-05-25] MEDS ORDERED: CLOPIDOGREL 75 MG TAB PO SCH (09:00)
[2021-05-25] MEDS ORDERED: MULTIVITAMINS, THERA 1 EACH TAB PO SCH (09:00)
[2021-05-25] MEDS: HEPARIN SODIUM,PORCINE/PF 5,000 UNIT/0.5 ML SYRINGE SQ SCH ×2 (09:16→10:57)
[2021-05-25] MEDS: TICAGRELOR 90 MG TAB PO SCH (09:17)
--- NOTE | 2021-05-25 10:00 | ECHOF ---
Referral Reason:stroke MEASUREMENTS -------- HEIGHT: 162.6 cm WEIGHT: 108.9 kg BP: RVIDd: 2.9 cm (< 3.3) IVSd: 1.1 cm (0.6 - 1.1) LVIDd: 4.2 cm (3.9 - 5.3) LVPWd: 1.3 cm (0.6 - 1.1) IVSs: 1.3 cm LVIDs: 3.3 cm LVPWs: 1.0 cm LAESV Index (A-L): 23.02 ml/m Ao Diam: 3.3 cm (2.0 - 3.7) AV Cusp: 1.9 cm (1.5 - 2.6) MV EXCURSION: 15.965 mm (> 18.000) MV EF SLOPE: 77 mm/s (70 - 150) EPSS: 0.2 cm MV E Andrew: 0.64 m/s MV DecT: 198 ms MV A Andrew: 0.96 m/s MV E/A Ratio: 0.67 RAP: 5.00 mmHg RVSP: 21.69 mmHg FINDINGS -------- Sinus rhythm. This was a technically good study. LV size, wall thickness and systolic function are normal, with an EF greater than 55%. The left minal tricular size is normal. The right ventricle is normal in size. Normal LA size by volume 22+/-6 ml/m2. The right atrial size is normal. There is mild aortic valve sclerosis. There is no evidence of aortic regurgitation. Mild mitral annular calcification present. Mild mitral regurgitation is present. Mild tricuspid regurgitation present. Right ventricular systolic pressure is normal at < 35 mmHg. There is no pulmonic regurgitation present. The aortic root size is normal. There is no pericardial effusion. CONCLUSIONS -------- 1. LV size, wall thickness and systolic function are normal, with an EF greater than 55%. 2. The left ventricular size is normal. 3. The right ventricle is normal in size. 4. Normal LA size by volume 22+/-6 ml/m2. 5. The right atrial size is normal. 6. There is mild aortic valve sclerosis. 7. Mild mitral annular calcification present. 8. Mild mitral regurgitation is present. 9. Mild tricuspid regurgitation present. 10. The aortic root size is normal. 11. There is no pericardial effusion. TRANSITION COACH: Sindy Muro RDCS
--- NOTE | 2021-05-25 18:15 | P.PN ---
Subjective Progress Note Date: 05/25/21 Patient seen at bedside and she stated that she has no further episodes of dizziness, weakness or numbness or any neurological problems. She feels she is at the baseline. Objective - Vital Signs Vital signs: Vital Signs Temp 97.6 F 05/25/21 07:00 Pulse 68 05/25/21 07:37 Resp 17 05/25/21 07:37 BP 130/80 05/25/21 07:00 Pulse Ox 97 05/25/21 07:00 Intake & Output 05/24/21 05/25/21 05/25/21 18:59 06:59 18:59 Intake Total 300 Balance 300 Weight 108.862 kg Intake: Oral 300 Other: Voiding Method Toilet Toilet # Voids 2 - Exam GENERAL: The patient is lying in bed and is not in acute distress. NEUROLOGICAL: Higher mental function: The patient is awake, alert, oriented to self, place and time. Patient is following commands. No aphasia and no neglect. Cranial nerves: The pupils are round, equal and reactive to light and accommodation. Visual rubio are full to confrontation throughout. Extraocular movement is intact no nystagmus is noted. Facial sensation is normal to touch throughout. The facial strength is normal throughout. Hearing is normal bilaterally to hand rub. Tongue is midline and moved [id number] without any difficulty. No dysarthria is noted. Shoulder shrug is normal bilaterally. Motor: Gait: Walk with slight limp over the right (chronic from her old stroke). The strength is right arm flexion is 4+ and right hand account planner is 4+. Right knee extension is 4+ to 5- (per patient deficits over the right are old). Otherwise 5 over 5 throughout. Normal tone and bulk. Cerebellum: Normal finger to nose bilaterally. Sensation: Sensation is normal to touch throughout. Reflexes (right/left): 3+ over the right and 2+ throughout left. Plantars is upgoing over the right and downgoing over the left. WORK-UP: MRI the brain is reported as no MRI evidence for recent infarct. Mild diffuse age-related cerebral atrophy. Mild nonspecific white matter changes. Carotid duplex is reported as no hemodynamically significant stenosis in either internal carotid artery. 2-D echo was reported as left ventricular size is normal. With ejection fraction of 55%. Normal left atrial size by volume. Hemoglobin A1c is 5.3 which is considered within normal limits. Lipid panel as triglycerides 76, cholesterol of 119, LDL 52, HDL 51. TSH is 1.790 which is considered within normal limits. Orthostatic vitals is supine blood pressure of 133/77 with a heart rate of 75, sitting his blood pressure of 126/86 with a heart rate of 82 and standing is 128/88 with a heart rate of 91. Orthostatics are negative. - Labs CBC & Chem 7: 05/25/21 05:03 05/25/21 05:03 Labs: Abnormal Lab Results - Last 24 Hours (Table) 05/25/21 05/25/21 Range/Units 05:03 05:03 RBC 3.93 L (4.10-5.20) X 10*6/uL MCV 97.5 H (80.0-97.0) fL BUN/Creatinine Ratio 22.22 H (12.00-20.00) Ratio Assessment and Plan Assessment: Transient Episode of leaning toward right side and vertigo seems likely TIA History of stroke (2016) s/p IV tpa with mild residual right-sided weakness Slight elevated hypertension with history of hypertension. History of hyperlipidemia History of hypothyroidism Plan: * The patient is restarted on her home dose of aspirin 81 mg daily, Plavix and a 5 mg daily. I stopped the Plavix 75mg ON 05/24/21 since it is felt she failed he home medication and started the patient on Brilinta 90mg 1 tab bid. She is to continue dual antiplateletes (ASA and Brilinta. Patient stated that she will go back to her home dose of Plavix if not covered by insurance and I am ok with that). She is continued on her home dose of Lipitor 80 mg daily at bedtime for secondary stroke prophylaxis. * Consulted PT, OT. * Q4 hours neuro checks. * Place on cardiac monitoring. * We'll defer the rest of the medical management to primary team. * Upon discharge, the patient needs to follow-up with a neurologist as outpatient within 1-2 weeks. For DVT prophylaxis: Placed on subq heparin 5000U every 12 hrs. Patient is clear from neurological perspective. Russell Jackson MD Neuro-Hospitalist Time with Patient: Less than 30
--- NOTE | 2021-05-26 14:11 | P.DS ---
Providers Date of admission: 05/24/21 11:51 Expected date of discharge: 05/25/21 Attending physician: Cosme Ponce MD Consults: 05/24/21 11:53 Consult Physician Urgent Consulting Provider: Russell Jackson Consult Reason/Comments: acute tia, hx cva Do you want consulting provider notified?: Yes Primary care physician: Jonny Centeno Hospital Course: Final diagnosis Left side facial droop as well as weakness of the right side possible acute transient ischemic attack Previous acute stroke on the right side status post TPA in 2017 Hypertension Hyperlipidemia Hypothyroidism History of hernia repair history of degenerative joint disease obesity with a BMI of 42.5 Remote history of nicotine dependence Full code Discharge disposition Patient is being discharged in a stable condition with guarded prognosis to home. Patient will follow-up with Dr. Centeno in the outpatient setting upon discharge. Patient will also follow-up with neurology Dr. Jenkins in the outpatient setting in 1 week. patient will continue on aspirin and Plavix upon discharge. Total time taken is greater than 35 minutes. hospital course This is a 66-year-old female who was recently admitted with left-sided facial droop and difficulty in standing up and was falling to the right side and was being closely monitored. Patient was originally at [facility] although unable to obtain an MRI and was transferred here for further evaluation. Patient was seen and evaluated by neurology and underwent carotid Doppler study which showed no significant stenosis noted along with mild to moderate peripheral hyperechoic plaque on the left side. Patient also underwent 2-D echo showing LV systolic function is normal with an EF greater than 55%. Patient had an MRI of the brain showingno evidence for recent infarct with mild diffuse age-related cerebral atrophy and mild nonspecific white matter changes. patient was taking aspirin and Plavix since 2017 for recent history of CVA and neurology here wanted to initiate Brilinta and discontinue Plavix although patient is hesitant about changing medication due to the cost and also would like to discuss it with her primary care provider Dr. Centeno before changing medications. this was discussed in detail with Dr. Jackson neurology at the bedside and he is agreeable with this and also recommended neurology outpatient follow-up. patient is reque sting to go home. Currently no reports of chest pain, shortness of breath, or palpitations. Patient is afebrile. No reports of nausea or vomiting and patient is tolerating diet. Patient will be discharged home today. On exam vital signs are stable. Cardio S1, S2 are muffled. Respiratory system shows diminished breath sounds at the bases with no wheezing or rhonchi noted. Abdomen is soft and obese, and nontender. Nervous system shows no focal deficits. Please refer to medication reconciliation sheet for a list of medications. Patient Condition at Discharge: Stable Plan - Discharge Summary New Discharge Prescriptions: Continue Loratadine [Claritin] 10 mg PO DAILY Lisinopril [Zestril] 10 mg PO QAM Atorvastatin [Lipitor] 80 mg PO HS hydroCHLOROthiazide 25 mg PO DAILY Levothyroxine Sodium [Synthroid] 100 mcg PO QAM Aspirin 81 mg PO DAILY #0 Multivitamins, Thera [Multivitamin (formulary)] 1 tab PO DAILY Clopidogrel Bisulfate [Plavix] 75 mg PO DAILY Discharge Medication List Atorvastatin [Lipitor] 80 mg PO HS 07/11/17 [History] Levothyroxine Sodium [Synthroid] 100 mcg PO QAM 07/11/17 [History] Lisinopril [Zestril] 10 mg PO QAM 07/11/17 [History] Loratadine [Claritin] 10 mg PO DAILY 07/11/17 [History] hydroCHLOROthiazide 25 mg PO DAILY 07/11/17 [History] Aspirin 81 mg PO DAILY #0 08/02/17 [Rx] Clopidogrel Bisulfate [Plavix] 75 mg PO DAILY 05/24/21 [History] Multivitamins, Thera [Multivitamin (formulary)] 1 tab PO DAILY 05/24/21 [History] Follow up Appointment(s)/Referral(s): Jono Jenkins MD [REFERRING] - 1 Week (office will call to set up appoinment) Jonny Centeno DO [Primary Care Provider] - 1-2 days Patient Instructions/Handouts: Transient Ischemic Attack (DC) Activity/Diet/Wound Care/Special Instructions: Activity Limited until follow-up Follow-up with primary care provider upon discharge Continue with aspirin and Plavix as discussed with neurology Follow-up with neurology outpatient in 1-2 weeks Continue medications as prescribed Continue current diet Discharge Disposition: HOME SELF-CARE
== END 2021-05-25 12:41 | disposition home or self-care (01) ==
LOC: EC 10:05 → 6NMEDSUR 11:51
PROVIDERS: ADMIT Internal Medicine; ATTEND Internal Medicine
DX: R29.810 Facial weakness (principal); R53.1 Weakness; I69.351 Hemiplegia and hemiparesis following cerebral infarction affecting right dominant side; I10 Essential (primary) hypertension; E78.5 Hyperlipidemia, unspecified; E03.9 Hypothyroidism, unspecified; M19.90 Unspecified osteoarthritis, unspecified site; E66.9 Obesity, unspecified; Z68.41 Body mass index [BMI] 40.0-44.9, adult; K44.9 Diaphragmatic hernia without obstruction or gangrene; Z79.899 Other long term (current) drug therapy; Z79.890 Hormone replacement therapy; Z79.02 Long term (current) use of antithrombotics/antiplatelets; Z79.82 Long term (current) use of aspirin; Z87.891 Personal history of nicotine dependence; Z96.642 Presence of left artificial hip joint; Z83.3 Family history of diabetes mellitus; Z82.49 Family history of ischemic heart disease and other diseases of the circulatory system
CPT/HCPCS: 99285; 96372 ×2; 36415; 93005; 93306; 97161; 97165; 80061; 80053; 80048; 84443; 84484; 85025 ×2; 85610; 85730; 83036; 93880; 70551; G0378 ×2; J1644

== ENCOUNTER → 2023-01-25 | Outpatient (CLI) | payer BC, MEDICARE ==
--- NOTE | 2023-01-25 12:43 | XR ---
EXAMINATION TYPE: XR Hip Complete RT DATE OF EXAM: 01/25/2023 COMPARISON: None HISTORY: Pain TECHNIQUE: 2 view right hip FINDINGS: Femoral head articulates with the acetabulum. No acute fracture or dislocation is evident. Mild spurring from the femoral head is present. There is mild joint space narrowing. Follow up exams can be performed as clinically indicated IMPRESSION: 1. Mild osteoarthritic degenerative changes right hip.
== END | disposition home or self-care (01) ==
LOC: RADXRYALE 09:17
PROVIDERS: ATTEND Family Medicine
DX: M16.11 Unilateral primary osteoarthritis, right hip (principal)
CPT/HCPCS: 73502

== ENCOUNTER → 2023-05-29 | Outpatient (CLI) | payer BC, MEDICARE ==
--- NOTE | 2023-06-04 23:38 | MR ---
EXAMINATION TYPE: MR hip RT wo con DATE OF EXAM: 05/29/2023 COMPARISON: Right hip x-ray January 25, 2023 HISTORY: Rt hip pain and limited movement for 3 months, osteoarthritis. Worsening pain after physical therapy. Standard multiplanar, multisequence MRI departmental protocol Multiplanar, multisequence images of the pelvis focusing on the right hip were acquired without contr ast. FINDINGS: There is susceptibility artifact from surgical change involving the left hip and visualized femur. Moderate axial joint space loss and right hip with mild to moderate head neck collar spurring is seen . There is moderate sized right hip joint effusion. Tiny subchondral cystic change involving the righ t femoral head near 2:00 position coronal image 10. No suspicious increased T2 signal or edema in the right femoral head or neck. No serpiginous diminished T1 signal to suggest avascular necrosis. Muscl e bulk is symmetric and maintained. No right groin hernia or adenopathy is seen. No abnormal small or large bowel dilatation. Uterus is unremarkable. Urinary bladder is poorly disten ded. IMPRESSION: At least moderate degenerative changes in the right hip as detailed above. Moderate-size joint effusion is present.
== END | disposition home or self-care (01) ==
LOC: RADMRIMAIN 11:31
PROVIDERS: ATTEND Family Medicine
DX: M16.11 Unilateral primary osteoarthritis, right hip (principal); M25.451 Effusion, right hip

== ENCOUNTER → 2023-07-31 | Outpatient (CLI) | payer MEDICARE | END | disposition home or self-care (01) | LOC: LABPAT 08:40 | PROVIDERS: ATTEND Orthopaedic Surgery | DX: Z01.812 Encounter for preprocedural laboratory examination (principal); Z22.322 Carrier or suspected carrier of Methicillin resistant Staphylococcus aureus; M16.11 Unilateral primary osteoarthritis, right hip | CPT/HCPCS: 86850; 86900; 86901; 87070 ==

== ENCOUNTER 2023-08-07 05:42 | Day surgery (SDC) | payer MEDICARE ==
--- NOTE | 2023-08-06 12:22 | HP ---
HISTORY AND PHYSICAL DATE OF SURGERY: 08/07/2023. HISTORY OF PRESENT ILLNESS: Edna Guzman is a 68-year-old patient seen with symptomatic right hip osteoarthritis. We discussed options for treatment. She elected to proceed with direct anterior right total hip arthroplasty. Consents obtained. Medical clearance was provided by Dr. Jonny Qureshi. PAST MEDICAL HISTORY: Hypertension, hyperlipidemia. PAST SURGICAL HISTORY: Total hip arthroplasty, herniorrhaphy, cataract surgery. DAILY MEDICATIONS: 1. Aspirin. 2. Atorvastatin. 3. Hydrochlorothiazide. 4. Lisinopril. 5. Loratadine. ALLERGIES: None. SOCIAL HISTORY: She denies tobacco use. PHYSICAL EVALUATION OF THE RIGHT HIP: She has diffuse tenderness about the hip girdle. Limited range of motion with severe pain. Positive hip impingement sign. Straight-leg raise negative. Distal neurovascular exam is intact. RADIOGRAPHS: Right hip radiographs reveal severe osteoarthritic changes. IMPRESSION: 1. Right hip osteoarthritis. 2. Hypertension. 3. Hyperlipidemia. PLAN: Direct anterior right total hip arthroplasty. MMODL / IJN: [id number] /
[~2023-08-07 05:42] MED LIST changes: -ACETAMINOPHEN TAB 500 MG TAB PO ONE; +ACETAMINOPHEN TAB 500 MG TAB PO PRN; -MELOXICAM 7.5 MG TAB PO ONE; +MELOXICAM 7.5 MG TAB PO PRN; +TRANEXAMIC 1,000 MG/100ML-NACL 1,000 MG in SALINE 1 100ML.BAG IVPB PRN; -TRANEXAMIC ACID 1,000 MG in SODIUM CHLORIDE 0.9% 100 ML IVPB ONE; -ceFAZolin 2 GM in SODIUM CHLORIDE 0.9% 100 ML IVPB ONE
[2023-08-07] MEDS ORDERED: DEXAMETHASONE SOD PHOSPHATE 4 MG/ML 1 ML VIAL IV ONE (06:05)
[2023-08-07] MEDS ORDERED: ONDANSETRON 4 MG/2 ML VIAL IVP ONE (06:05)
[2023-08-07] MEDS ORDERED: LIDOCAINE 1% (10MG/ML) FOR IV START INTRADERMA PRN (06:05)
[2023-08-07] MEDS: LACTATED RINGERS 1,000 ML IV SCH ×3 (06:16→19:21)
[2023-08-07] MEDS ORDERED: MIDAZOLAM 2 MG/2 ML VIAL IVP ONE (07:01)
[2023-08-07] MEDS ORDERED: fentaNYL (PF) 50 MCG/ML 2 ML AMP IVP ONE (07:02)
[2023-08-07] MEDS ORDERED: ceFAZolin 1,000 MG in SODIUM CHLORIDE 0.9% 1,000 ML IRRIGATION ONE (07:59)
[2023-08-07] MEDS ORDERED: NALOXONE 0.4 MG/ML 1 ML VIAL IV PRN (08:56)
[2023-08-07] MEDS ORDERED: ONDANSETRON 4 MG/2 ML VIAL IVP PRN (08:56)
[2023-08-07] MEDS ORDERED: HYDROcodone/APAP 5-325MG 1 EACH TAB PO PRN (08:56)
[2023-08-07] MEDS ORDERED: HYDROcodone/APAP 7.5-325MG 1 EACH TAB PO PRN (08:56)
[2023-08-07] MEDS ORDERED: HYDROmorphone 0.5 MG/0.5 ML SYRINGE IVP PRN ×3 (08:56)
--- NOTE | 2023-08-07 08:56 | P.OP ---
Date of Procedure: 08/07/23 Preoperative Diagnosis: Right hip osteoarthritis Postoperative Diagnosis: Right hip osteoarthritis Procedure(s) Performed: Direct anterior right total hip arthroplasty Implants: 1. Depuy Corail 135 standard collar KA size 12 press-fit femoral stem 2. Depuy pinnacle 52 mm press-fit acetabular shell 3. Depuy pinnacle neutral polyethylene acetabular liner 36 mm ID 52 mm OD 4. Biolox delta ceramic femoral head +1.5 36 mm Anesthesia: GETA, regional (erector spinae block) Surgeon: Gianluca Stewart Juice Mixer #1: Oleg Mccann Estimated Blood Loss (ml): 65 Pathology: none sent Condition: stable Disposition: PACU Indications for Procedure: 68-year-old patient seen with symptomatic right hip osteoarthritis. After discussing treatment options, she elected to proceed with total hip arthroplasty via direct anterior approach. Operative Findings: See description of procedure Description of Procedure: The patient was taken to the operative suite. Patient underwent a general anesthetic by the department of anesthesia. Patient was then transferred to the [place] table. Patient was given preoperative IV antibiotics and TXA. Both lower extremities were placed in standard leg spars. The hip was then prepped and draped in the normal sterile orthopedic fashion. A standard anterior incision was made beginning 3 cm lateral and 1 cm distal to the ASIS extending 10 cm. Dissection was then carried down through the subcutaneous soft tissues down to the fascia overlying the tensor fascia dee. An incision was now made through the fascia. Careful dissection was taken down exposing the tensor fascia dee muscle. A Cobra retractor was now placed along the medial femoral neck and a second one along the lateral femoral neck. The venous circumflex vessels were now identified, cauterized and clipped. We identified the anterior hip capsule. An incision was made through the hip capsule along the lateral border. I performed a partial anterior capsulectomy. Retractors were now placed around the femoral neck itself. A femoral neck cut was now made with a sagittal saw. It was completed with an osteotome at the lateral neck area. The femoral head was now removed without difficulty. The extremity was now rotated to 60 of external rotation. It was locked in position. Residual labrum was now debrided out. Serial reaming was performed of the acetabulum while Romie BOYER assisted holding an anterior retractor for exposure. Once we reached the appropriate size and a trial was position and fit nicely. The appropriate size was now chosen opened and made available. It was introduced into the acetabulum without difficulty. The C-arm/fluoroscopy was now brought into the operative field. We made sure we had a true AP pelvic view. We now under direct C- arm/fluoroscopy introduced into the acetabular component with appropriate version and inclination. I held the cup in appropriate position well Romie BOYER used a mallet to seat the acetabular component. I noted the component now to be well seated and stable. Acetabular cup introduce her was removed. The C-arm was pulled back. An appropriate liner was introduced and clicked into position. It was felt to be stable. At this point retractors were removed. The extremity was now placed into 140 external rotation with no traction. The leg was now dropped to the ground and adducted. Appropriate retractors were now positioned along the proximal femur. We also placed our femoral look into position. Additional capsular releasing was performed to gain access to the proximal femur. We now used a box osteotome. A canal finder was now utilized. Serial broaching was now performed with the assistance of Romie BOYER tapping the broaches down with a mallet while held the broach in appropriate rotation and position. This was done until we reached the appropriate size with good overall rotational stability. Appropriate calcar planing was performed. A trial head/neck was placed into position. The hip was now reduced. The C- arm/fluoroscopy was brought back into the operative field. I obtained an AP pelvis was demonstrated adequate leg length alignment. The trial components appeared adequately sized and positioned. The C-arm/fluoroscopy was pulled back. Retractors were repositioned and the hip was dislocated. The leg was again taken down to the ground and adducted. Appropriate retractors were repositioned as well as the femoral hook. All trial components were removed. The femoral implant was opened along with the femoral head. The femoral implant was introduced on the appropriate handle into our pre-broached area. I held the component position well oRmie BOYER used a mallet to seat the femoral component. The femoral component was now noted to be well seated and stable.. The femoral head was introduced with good positioning and fixation noted. Retractors were now removed. The hip was now reduced. There appeared be good positioning of the hip confirmed on intraoperative fluoroscopy. Spot films were obtained to document this. A second gram of TXA was given. The deep and superficial soft tissues were infiltrated with local analgesic. Bipolar cautery had been utilized intermittently through the procedure for hemostasis. The wound was irrigated copiously with pulse lavage mechanical irrigation. The fascia was repaired with Vicryl suture. The subcutaneous soft tissues were repaired in layers with Vicryl suture. The skin was approximated with pernio/Dermabond. Sterile dressings were applied. Patient was then awakened, transferred to a bed and taken to recovery in stable condition. Romie BOYER assisted with the complex procedure.
--- NOTE | 2023-08-07 09:02 | XR ---
Intraoperative/procedural fluoroscopic services were provided for right total hip arthroplasty. Total fluoroscopy time is 18.7 seconds with a total of 1 submitted image to PACS. Total DAP 1.2816 Gycm2. Please see the operative note for further details.
[2023-08-07] MEDS ORDERED: LACTATED RINGERS 1,000 ML IV ONE (09:08)
[2023-08-07] MEDS: HYDROmorphone 0.5 MG/0.5 ML SYRINGE IVP PRN ×3 (09:37→10:15)
--- NOTE | 2023-08-07 11:33 | P.ANPRN ---
Procedure Note - Anesthesia - Nerve Block Performed Right [place] Single Time Out Performed: Yes (701) Date of Procedure: 08/07/23 Procedure Start Time: :02 Procedure Stop Time: :07 Location of Patient: PreOp Indication: Acute Post-Operative Pain, Requested by Surgeon Specifically requested for management of pain by DrJeremy: Gianluca Stewart Sedation Type: Sedate with meaningful contact maintained Preparation: Sterile Prep Position: Supine Catheter: None Needle Types: Pajunk Needle Gauge: 21 Ultrasound used to visualize needle placement: Yes Ultrasound used to observe medication spread: Yes Injectate: 0.5% Ropivacaine (see comment for volume) (30cc) Blood Aspirated: No Pain Paresthesia on Injection Noted: No Resistance on Injection: Normal Image Stored and Saved: Yes Events: Uneventful and Well Tolerated
[2023-08-07] MEDS ORDERED: MULTIVITAMINS, THERA 1 EACH TAB PO SCH (12:00)
--- NOTE | 2023-08-07 14:01 | P.CONS ---
History of Present Illness - Reason for Consult Consult date: 08/07/23 - History of Present Illness Patient is a 68-year-old female with history of hypertension, hypothyroidism, stroke with right-sided weakness, severe arthritis, overactive bladder presented for elective right total hip arthroplasty. [facility] physicians has been consulted for medical management. Currently vital signs are within normal limits. No labs available for review. Patient denies any chest pain, shortness of breath, abdominal pain, nausea, vomiting, urinary or bowel complaints. Pertinent positives and negatives as discussed in HPI, a complete review of systems was performed and all other systems are negative. Patient seen and examined at bedside. Vital signs reviewed General: nontoxic, no distress, appears at stated age Derm: warm, dry, dressing clean, dry, intact Head: atraumatic, normocephalic, symmetric Eyes: EOMI, no lid lag, anicteric sclera, pupils equal round reactive to light ENT: Nose and ears atraumatic Neck: No thyromegaly, supple Mouth: no lip lesion, mucus membranes moist Cardiovascular: S1S2 reg, no murmur, no edema Lungs: clear to auscultation bilateral, no rhonchi, no rales, no wheeze, no accessory muscle use Abdominal: soft, nontender to palpation, no guarding, no appreciable organomegaly Ext: no gross muscle atrophy, muscle strength muscle strength 5 out of 5 in all 4 extremities, no contractures Neuro: CN II-XII grossly intact Psych: Alert, oriented, appropriate affect Assessment/Plan: Hypertension Hypothyroidism History of stroke Overactive bladder Status post right total hip arthroplasty -Home medications reviewed and reconciled -Continue Plavix, hold aspirin, continue statin -DVT prophylaxis per orthopedic surgery, currently on 40 mg subcu Lovenox daily -Pain management and bowel regimen per orthopedic surgery -CBC and BMP tomorrow Thank you for allowing us to participate in the care of this pleasant patient. Do not hesitate to contact us with questions. Someone can be reached from the [facility] hospitalist group all hours of the day at [phone] or via [email or web address]. Past Medical History Past Medical History: CVA/TIA, Hyperlipidemia, Hypertension, Osteoarthritis (OA), Pneumonia, Thyroid Disorder Additional Past Medical History / Comment(s): CVA-Oct slight weakness rt side, some atrophy, post op infection left hip 2016. pt states lisinopril and atorvastatin preventative after stroke. urinary frequency. swelling to ankles. 1 leg shorter than the other. cannot lay flat at this time. sleeps in recliner History of Any Multi-Drug Resistant Organisms: None Reported Past Surgical History: Hernia Repair, Joint Replacement Additional Past Surgical History / Comment(s): hiatal hernia, left hip replaced 07-16-17 , colonoscopy, Past Anesthesia/Blood Transfusion Reactions: No Reported Reaction Additional Past Anesthesia/Blood Transfusion Reaction / Comm: no hx blood transfusion. pt woke up during last hip surgery. Smoking Status: Former smoker - Past Family History Mother Family Medical History: Diabetes Mellitus, Hypertension Father Family Medical History: Hypertension Medications and Allergies Home Medications Medication Instructions Recorded Confirmed Type Atorvastatin [Lipitor] 80 mg PO DAILY 07/11/17 08/07/23 History Levothyroxine Sodium [Synthroid] 100 mcg PO QAM 07/11/17 08/07/23 History Loratadine [Claritin] 10 mg PO DAILY 07/11/17 08/07/23 History hydroCHLOROthiazide 25 mg PO DAILY 07/11/17 08/07/23 History lisinopriL [Zestril] 10 mg PO QAM 07/11/17 08/07/23 History Clopidogrel Bisulfate [Plavix] 75 mg PO DAILY 05/24/21 08/07/23 History Aspirin 162 mg PO DAILY 08/05/23 08/07/23 History Cholecalciferol [Vitamin D3 (125 125 mcg PO DAILY 08/05/23 08/07/23 History Mcg = 5000 Iu)] Mirabegron [Myrbetriq] 50 mg PO DAILY 08/05/23 08/07/23 History Unk Biotin 1 tab PO DAILY 08/05/23 08/07/23 History Unk Cinnamon 1 tab PO DAILY 08/05/23 08/07/23 History Unk Magnesium 1 tab PO DAILY 08/05/23 08/07/23 History Allergies Allergy/AdvReac Type Severity Reaction Status Date / Time No Known Allergies Allergy Verified 08/07/23 06:19 Physical Exam Vitals: Vital Signs Temp Pulse Resp BP Pulse Ox 08/07/23 12:35 79 18 130/52 98 08/07/23 12:05 77 16 121/59 99 08/07/23 11:35 81 16 138/75 97 08/07/23 11:05 77 16 117/55 97 08/07/23 10:35 63 16 107/55 97 08/07/23 10:20 72 16 110/58 98 08/07/23 10:05 58 L 16 100/50 100 08/07/23 09:55 65 18 114/57 100 08/07/23 09:40 70 18 111/52 96 08/07/23 09:26 97.6 F 90 18 148/68 96 08/07/23 07:12 70 18 117/57 98 08/07/23 06:38 97.3 F L 80 18 137/63 98 Intake and Output 08/06/23 08/07/23 08/07/23 22:59 06:59 14:59 Intake Total 200 1301 Output Total 65 Balance 200 1236 Intake: IV 200 1301 Output: Estimated Blood Loss 65 Other: Weight 106.2 kg
[2023-08-07] MEDS: FAMOTIDINE 20 MG TAB PO SCH (14:30)
[2023-08-07] MEDS: ENOXAPARIN 40 MG/0.4 ML SYRINGE SQ SCH (14:30)
[2023-08-07] MEDS: ACETAMINOPHEN TAB 325 MG TAB PO PRN (20:03)
[2023-08-07] MEDS ORDERED: SENNOSIDES-DOCUSATE SODIUM 1 EACH TAB PO SCH (21:00)
[2023-08-08] MEDS: ACETAMINOPHEN TAB 325 MG TAB PO PRN (00:56)
[2023-08-08] MEDS: LACTATED RINGERS 1,000 ML IV SCH ×2 (03:08)
[2023-08-08] MEDS ORDERED: LEVOTHYROXINE 100 MCG TAB PO SCH (06:30)
[2023-08-08 07:41] VITALS: BP 114/73; PULSE 82; RESP 17; TEMP 98.4
[2023-08-08] MEDS ORDERED: lisinopriL 10 MG TAB PO SCH (09:00)
[2023-08-08] MEDS ORDERED: CLOPIDOGREL 75 MG TAB PO SCH (09:00)
[2023-08-08] MEDS ORDERED: NON FORMULARY DRUG (Mirabegron [Myrbetriq] 25 MG Tab.Er.24h) PO SCH (09:00)
[2023-08-08] MEDS ORDERED: ATORVASTATIN 80 MG TAB PO SCH (09:00)
[2023-08-08] MEDS ORDERED: LORATADINE 10 MG TAB PO SCH (09:00)
[2023-08-08] MEDS ORDERED: CHOLECALCIFEROL 125 MCG (5000 IU) TABLET PO SCH (09:00)
[2023-08-08] MEDS ORDERED: hydroCHLOROthiazide 25 MG TAB PO SCH (09:00)
[2023-08-08] MEDS: ENOXAPARIN 40 MG/0.4 ML SYRINGE SQ SCH (10:09)
[2023-08-08] MEDS: FAMOTIDINE 20 MG TAB PO SCH (10:09)
--- NOTE | 2023-08-08 10:24 | P.PN ---
Subjective Progress Note Date: 08/08/23 Principal diagnosis: Status post direct anterior right total hip arthroplasty Patient evaluated today at bedside, she is resting in her hospital chair, is present at bedside. Patient was able to work with physical therapy today and did very well. She does note some discomfort throughout the right lower extremity. She is urinating with no issues, she is passing gas. She denies headaches, lightheadedness, chest pain or shortness of breath Objective - Vital Signs Vital signs: Vital Signs Temp 98.4 F 08/08/23 07:19 Pulse 82 08/08/23 07:19 Resp 17 08/08/23 07:19 BP 114/73 08/08/23 07:19 Pulse Ox 98 08/08/23 07:19 FiO2 Intake & Output 08/07/23 08/08/23 08/08/23 18:59 06:59 18:59 Intake Total 1301 Output Total 65 Balance 1236 Weight 106.2 kg Intake: IV 1301 Output: Estimated Blood Loss 65 Other: # Voids 1 2 - Exam Right lower extremity: Incision is clean, dry, and intact. The foam dressing is in good condition. There is minimal soft tissue swelling and ecchymosis surrounding the medial and lateral aspects of the incision. Calf is soft, no tenderness with palpation. Plantar flexion, dorsiflexion, EHL, FHL are intact. Sensory exam to light touch throughout the extremity is intact, dorsal pedis pulses 2+. Assessment and Plan Assessment: Postoperative day #1 status post direct anterior right total hip arthroplasty Plan: Pain control, patient will like to avoid narcotics. She'll utilize Tylenol or anti-inflammatories DVT prophylaxis, resume aspirin and Plavix Wound care instructions were discussed, strength and bandage changes and showering instructions Patient is scheduled to be evaluated in the outpatient physical therapy setting later this week, prescription was placed in chart Medical recommendations Discharge planning: Patient is stable for discharge to home today Time with Patient: Less than 30
--- NOTE | 2023-08-08 10:27 | P.DS ---
Providers Date of admission: 08/07/2023 Expected date of discharge: 08/08/23 Attending physician: Gianluca Stewart Consults: 08/07/23 08:56 Consult Physician Routine Consulting Provider: Hank Tavarez Consult Reason/Comments: Medical management Do you want consulting provider notified?: Yes [facility] [place] [facility] Course: Date of admission: 08/07/2023 Date of discharge: 08/08/2023 Admission diagnosis: Status post direct anterior right total hip arthroplasty Discharge diagnosis: Same Attending physician: Dr. Stewart Surgical procedures: Direct anterior right total hip arthroplasty Brief history: Patient is a 68-year-old female with a history of progressive primary right hip osteoarthritis. At this point patient has failed conservative treatment measures and has opted to proceed with a elective direct anterior right total hip arthroplasty. Hospital course: Details of patient's surgery can be found in operative report. Patient tolerated the procedure well and was subsequently transported to orthopedic floor. Patient's orthopeidc and medical care was provided daily. Patient had daily laboratory tests performed for evaluation of overall blood counts. Patient had daily physical therapy to include strengthening range of motion as well as education with walker ambulation. Patient was treated with Lovenox for their postoperative DVT prophylaxis during their inpatient stay. Patient was noted to have a relatively uneventful postoperative course. Patient reported satisfactory pain control with oral pain medications by postoperative day 0. Patient showed satisfactory progress with physical therapy. Patient moved steadily through the program and had no difficulty meeting the goals by postoperative day 1. Given patient's otherwise satisfactory course and having met physical therapy goals, plan is to discharge patient home on postoperative day 1. Discharge condition/disposition: Patient will be discharged home in stable condition. Discharge medications: Instructions are given on resumption of patient's normal daily medications per primary care recommendation, in addition patient will be prescribed no new medications. Discharge instructions: 1. Wound care and infection precautions, keep incision dry and covered while showering, no lotions, creams, moisturizers. No soaking, tubs, pools, hottubs. Do not scrub over the incision. 2. Weight-bear as tolerated with walker / cane until follow-up. 3. Ice and elevate when necessary. Do not exceed 20 minutes per hour with ice pack. 4. Utilize compression sleeve until seen at first follow up appointment. 5. Visiting nursing care. 6. Home physical therapy. 7. Pain meds and anticoagulants per prescription. 8. Pain medication has potential to cause constipation. Increase oral fluid and fiber intake. Contact primary care provider if you have not had a bowel movement within 48 hours after discharge 9. No anti-inflammatory medication until discussed at first post operative visit, this including Motrin, Aleve, Mobic, Diclofenac, Aspirin. 10. Follow up in office at 2 weeks postop with Romie Mccann PA-C/Chito Cantrell 11. Follow up with your primary care doctor 7-10 days after discharge. 12. Contact [facility] with any questions, . Procedures: Direct anterior right total hip arthroplasty Patient Condition at Discharge: Good Plan - Discharge Summary Discharge Rx Participant: No New Discharge Prescriptions: No Action Loratadine [Claritin] 10 mg PO DAILY lisinopriL [Zestril] 10 mg PO QAM Atorvastatin [Lipitor] 80 mg PO DAILY hydroCHLOROthiazide 25 mg PO DAILY Levothyroxine Sodium [Synthroid] 100 mcg PO QAM Aspirin 162 mg PO DAILY Cholecalciferol [Vitamin D3 (125 Mcg = 5000 Iu)] 125 mcg PO DAILY Clopidogrel Bisulfate [Plavix] 75 mg PO DAILY Mirabegron [Myrbetriq] 50 mg PO DAILY Unk Magnesium 1 tab PO DAILY Unk Cinnamon 1 tab PO DAILY Unk Biotin 1 tab PO DAILY Discharge Medication List Atorvastatin [Lipitor] 80 mg PO DAILY 07/11/17 [History] Levothyroxine Sodium [Synthroid] 100 mcg PO QAM 07/11/17 [History] Loratadine [Claritin] 10 mg PO DAILY 07/11/17 [History] hydroCHLOROthiazide 25 mg PO DAILY 07/11/17 [History] lisinopriL [Zestril] 10 mg PO QAM 07/11/17 [History] Clopidogrel Bisulfate [Plavix] 75 mg PO DAILY 05/24/21 [History] Aspirin 162 mg PO DAILY 08/05/23 [History] Cholecalciferol [Vitamin D3 (125 Mcg = 5000 Iu)] 125 mcg PO DAILY 08/05/23 [History] Mirabegron [Myrbetriq] 50 mg PO DAILY 08/05/23 [History] Unk Biotin 1 tab PO DAILY 08/05/23 [History] Unk Cinnamon 1 tab PO DAILY 08/05/23 [History] Unk Magnesium 1 tab PO DAILY 08/05/23 [History] Follow up Appointment(s)/Referral(s): Oleg Mccann, NATY [PHYSICIAN [employer] AND BENEFITS MANAGER] - 2 Weeks Activity/Diet/Wound Care/Special Instructions: Orthopedic Discharge Instructions: 1. Wound care and infection precautions, keep incision dry and covered while showering, no lotions, creams, moisturizers. No soaking, pools, hot tubs. Do not scrub over incision. 2. Weight-bear as tolerated with walker / cane until follow-up. 3. Ice and elevate when necessary. Do not exceed 20 minutes per hour with ice pack. 4. Utilize compression sleeve until seen at first follow up appointment. 5. Pain meds and anticoagulants per prescription. 6. Pain medication has potential to cause constipation. Increase oral fluid and fiber intake. Contact primary care provider if you have not had a bowel movement within 48 hours after discharge. 7. No anti-inflammatory medication until discussed at first post operative visit, this including Motrin, Aleve, Mobic, Diclofenac. 8. Follow up in office at 2 weeks postop with Romie Mccann PA-C/Chito Aguilera PA-C 9. Follow up with your primary care doctor 7-10 days after discharge. 10. Contact [facility] with any questions, . Wound care instructions: 1. Okay to remove surgical dressing as of 08/12/2023 2. Okay to shower directly over the incision after removal of dressing Discharge Disposition: HOME SELF-CARE
[2023-08-08 11:10] LABS: Basophils # (A) 0.03 X 10*3/uL (0.00-0.10); Basophils % (A) 0.4 %; Eosinophils # (A) 0.05 X 10*3/uL (0.04-0.35); Eosinophils % (A) 0.6 %; HCT 30.3 % (37.2-46.3); Lymphocytes # (A) 1.74 X 10*3/uL (0.90-5.00); Lymphocytes % (A) 21.5 %; MCH 31.3 pg (27.0-32.0); Mean Platelet Volume 9.7 FL (9.5-12.2); Monocytes # (A) 0.82 X 10*3/uL (0.20-1.00); Monocytes % (A) 10.1 %; NRBC Per 100 WBC 0 X 10*3/uL (0.00-0.01); Neutrophils # (A) 5.44 X 10*3/uL (1.80-7.70); Platelet Count 193 X 10*3/uL (140-440); RBC 3.19 X 10*6/uL (4.10-5.20); RDW 12.4 % (11.5-14.5); WBC 8.11 X 10*3/uL (4.50-10.00)
[2023-08-08 11:18] LABS: BUN/Creat Ratio 13.62 Ratio (12.00-20.00); Blood Urea Nitrogen 10.9 mg/dL (9.0-27.0); Calcium 8.9 mg/dL (8.7-10.3); Chloride 102 mmol/L (96-109); Glucose 100 mg/dL (70-110); Potassium 4.2 mmol/L (3.5-5.5); Sodium 138 mmol/L (135-145)
--- NOTE | 2023-08-08 11:31 | P.PN ---
Subjective Progress Note Date: 08/08/23 Subjective: Seen and examined at present. No acute events overnight. Still having pain on the right side. Able to ambulate. Pertinent positives and negatives as discussed above, a complete review of systems was performed and all other systems are negative. Vitals Signs Reviewed. General: nontoxic, no distress, appears at stated age Derm: warm, dry, dressing clean, dry, intact Head: atraumatic, normocephalic, symmetric Eyes: EOMI, no lid lag, anicteric sclera Mouth: no lip lesion, mucus membranes moist Cardiovascular: S1S2 reg, no murmur Lungs: CTA bilateral, no rhonchi, no rales , no accessory muscle use Abdominal: soft, nontender to palpation, no guarding, no appreciable organomegaly Ext: no gross muscle atrophy, no edema, no contractures Neuro: CN II-XI grossly intact, no focal neuro deficits Psych: Alert, oriented, appropriate affect Data Reviewed Today: Pertinent Labs: Hemoglobin 10, creatinine 0.8 Imaging: No new imaging Assessment and Plan: Hypertension Hypothyroidism History of stroke Overactive bladder Status post right total hip arthroplasty Acute blood loss anemia, anticipated outcome of surgery -Home medications reviewed and reconciled -Continue all medications at the time of discharge Patient is medically optimized for discharge home Thank you for allowing us to participate in the care of this pleasant patient. Do not hesitate to contact us with questions. Someone can be reached from the [facility] hospitalist group all hours of the day at [phone] or via [email or web address]. Objective - Vital Signs Vital signs: Vital Signs Temp 98.4 F 08/08/23 07:19 Pulse 82 08/08/23 07:19 Resp 17 08/08/23 07:19 BP 114/73 08/08/23 07:19 Pulse Ox 98 08/08/23 07:19 FiO2 Intake & Output 08/07/23 08/08/23 08/08/23 18:59 06:59 18:59 Intake Total 1301 Output Total 65 Balance 1236 Weight 106.2 kg Intake: IV 1301 Output: Estimated Blood Loss 65 Other: Voiding Method Toilet # Voids 1 2 - Labs CBC & Chem 7: 08/08/23 07:05 08/08/23 07:05 Labs: Abnormal Lab Results - Last 24 Hours (Table) 08/08/23 Range/Units 07:05 RBC 3.19 L (4.10-5.20) X 10*6/uL Hgb 10.0 L (12.0-15.0) d/dL Hct 30.3 L (37.2-46.3) %
== END 2023-08-08 11:18 | disposition home or self-care (01) ==
LOC: OR 05:42 → 4SSUR 12:26 → OR 08-08 11:18
PROVIDERS: ATTEND Orthopaedic Surgery
DX: M16.11 Unilateral primary osteoarthritis, right hip (principal); I10 Essential (primary) hypertension; E78.5 Hyperlipidemia, unspecified; E03.9 Hypothyroidism, unspecified; D62 Acute posthemorrhagic anemia; Z86.73 Personal history of transient ischemic attack (TIA), and cerebral infarction without residual deficits; Z96.641 Presence of right artificial hip joint; Z79.02 Long term (current) use of antithrombotics/antiplatelets; Z79.82 Long term (current) use of aspirin; Z82.49 Family history of ischemic heart disease and other diseases of the circulatory system; Z87.891 Personal history of nicotine dependence; Z79.890 Hormone replacement therapy; Z79.899 Other long term (current) drug therapy
CPT/HCPCS: 97161; 64447; 80048; 85025; 73501; 27130; C1776; J2250; J1100; J0690 ×3; J2405; J1650; J3010; J1170 ×2

== ENCOUNTER → 2023-09-27 | Outpatient (CLI) | payer MEDICARE ==
--- NOTE | 2023-09-27 12:18 | XR ---
EXAMINATION TYPE: XR abdomen 2V DATE OF EXAM: 09/27/2023 11:47 AM CLINICAL INDICATION:Female, 68 years old with history of [id number] GEN ABD PAIN; [facility] COMPARISON: None. TECHNIQUE: Two views of the abdomen were obtained. FINDINGS: The bowel gas pattern is nonspecific without dilated loops of small or large bowel. There i s no evidence for organomegaly or pneumoperitoneum. The osseous structures are intact. No abnormal calcifications are present. Fecal material and gas are demonstrated throughout the colon and rectum. Bilateral hip arthroplasties appear intact. IMPRESSION: Nonspecific bowel gas pattern without radiographic evidence for acute process. No significant stool b urden identified.
== END | disposition home or self-care (01) ==
LOC: RADXRYALE 11:33
PROVIDERS: ATTEND Physician Assistant Medical
DX: R10.84 Generalized abdominal pain (principal); R14.0 Abdominal distension (gaseous)
CPT/HCPCS: 74019